=== PATIENT | male | born 1980 | race Caucasian/White ===

== ENCOUNTER → 2022-01-20 09:03 | Outpatient (CLI) | payer OTHER, BC, SELFPAY ==
--- NOTE | ~2022-01-20 | XR_ITS ---
EXAMINATION: XR_CERV2-3V_CR DATE: 01/20/2022 09:34 INDICATION: Right lateral neck pain. Anesthesia of skin. TECHNIQUE: 4 views of cervical spine were obtained. COMPARISON: None. FINDINGS: There is 12 degrees dextroscoliosis of cervical spine. There is hypolordosis of cervical sp ine. Vertebral body heights are normal. There is moderately decreased disc height at C5-C6 and C6-C7. The facet joints are unremarkable. There is mild central canal stenosis at C5-C6 and C6-C7. No preve rtebral soft tissue swelling. IMPRESSION: 1. Moderate cervical spondylosis. 2. Cervical dextroscoliosis. Reviewed, dictated and finalized at location A.
== END ==
PROVIDERS: PCP Family Medicine; Visit Provider Nurse Practitioner Family
DX: M54.2 Cervicalgia (principal); R20.0 Anesthesia of skin; R20.2 Paresthesia of skin; M47.816 Spondylosis without myelopathy or radiculopathy, lumbar region; M47.812 Spondylosis without myelopathy or radiculopathy, cervical region; M41.82 Other forms of scoliosis, cervical region
CPT/HCPCS: 72040

== ENCOUNTER 2022-01-28 11:20 | Outpatient (CLI) | payer OTHER, BC, SELFPAY ==
--- NOTE | ~2022-01-28 | US_ITS ---
EXAMINATION: US renal BI DATE: 01/28/2022 12:12 INDICATION: Right flank and back pain TECHNIQUE: Multiple grayscale and Doppler ultrasound images of the kidneys were obtained. COMPARISON: None. FINDINGS: The right kidney measures 11.8 x 6.2 x 5.1 cm. There is a 1.6 cm cyst of the mid kidney. A 9 mm echogenic focus in the lower pole of the right kidney without posterior acoustic shadowing likel y reflects an angiomyolipoma. The left kidney measures 11.0 x 5.0 x 5.7 cm. The kidneys demonstrate n ormal parenchymal echogenicity. There is no hydronephrosis. The bladder is incompletely distended. Ap parent mild wall thickening of the urinary bladder likely reflects incomplete distention. IMPRESSION: 1. Unremarkable kidneys without hydronephrosis. Reviewed, dictated and finalized at location A.
--- NOTE | ~2022-01-28 | US_ITS ---
EXAMINATION: US scrotum doppler DATE: 01/28/2022 12:12 INDICATION: Left testicular pain TECHNIQUE: Testicular sonogram utilizing grayscale and Doppler COMPARISON: None. FINDINGS: The right testis measures 5.3 x 3.2 x 2.5 cm. The left testis measures 4.6 x 3.5 x 2.2 cm. There is normal vascular flow to both testes. The right epididymis is normal with normal vascular yasmany w. The left epididymis is normal with normal vascular flow. There are multiple anechoic structures in the supratesticular region on the left which may reflect a varicocele. IMPRESSION: 1. Possible left varicocele. Reviewed, dictated and finalized at location A.
== END 2022-01-28 11:21 | disposition home or self-care (01) ==
LOC: ANHIMG 11:26
PROVIDERS: PCP Family Medicine; Visit Provider Nurse Practitioner Family
DX: R10.9 Unspecified abdominal pain (principal); N50.819 Testicular pain, unspecified
CPT/HCPCS: 76775; 76870; 93976

== ENCOUNTER → 2022-11-06 10:32 | Outpatient (CLI) | payer BC, SELFPAY ==
--- NOTE | ~2022-11-06 | XR_ITS ---
XR wrist RT min 3V DATE: 11/06/2022 10:37 INDICATION: Recent fall. Lateral right wrist. TECHNIQUE: 4 views COMPARISON: 11/09/2019 right hand FINDINGS: No fracture or dislocation, periosteal reaction or bone destruction, joint space narrowing, radiopaque intra-articular loose body, chondrocalcinosis or erosive change. IMPRESSION: Negative Reviewed, dictated and finalized at location B. IFIED NURSE OPERATING ROOM IMPRESSION: Negative
== END ==
PROVIDERS: PCP Family Medicine; Visit Provider Nurse Practitioner
DX: M25.531 Pain in right wrist (principal)
CPT/HCPCS: 73110

== ENCOUNTER → 2022-11-13 09:25 | Outpatient (CLI) | payer BC, SELFPAY ==
--- NOTE | ~2022-11-13 | XR_ITS ---
EXAMINATION: XR wrist RT 2V DATE: 11/13/2022 09:35 INDICATION: Persistent right wrist pain post recent injury TECHNIQUE: Posteroanterior and lateral views of the right wrist were obtained. COMPARISON: 11/06/2022 FINDINGS: 4 mm ulnar minus variance. Alignment is otherwise normal. Old healed fracture deformity at the distal diaphysis of the right fifth metacarpal. No acute fracture. Joint space is normal. Sclerotic bone is land at the radial styloid process. Soft tissue swelling subcutaneous edema about the wrist. IMPRESSION: 1. No acute osseous abnormality. Reviewed, dictated and finalized at location B. 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
== END ==
PROVIDERS: PCP Family Medicine; Visit Provider Physician Assistant
DX: M25.531 Pain in right wrist (principal)
CPT/HCPCS: 73100

== ENCOUNTER 2023-09-08 15:11 | Outpatient (CLI) | payer BC, SELFPAY ==
--- NOTE | ~2023-09-08 | MR_ITS ---
EXAMINATION: MR lumbar spine wo con DATE: 09/08/2023 16:05 INDICATION: Low back pain TECHNIQUE: Magnetic resonance imaging (MRI) of the lumbar spine was performed without intravenous con trast. Sequences included sagittal T2-weighted FSE, sagittal T2-weighted FS FSE, sagittal T1-weighted FSE, and axial T2-weighted FSE. COMPARISON: None FINDINGS: 4 mm retrolisthesis L1 on L2, 6 mm retrolisthesis and 4 mm left lateral listhesis of L2 on L3, 5 mm r etrolisthesis L3 on L4, 4 mm retrolisthesis L4 on L5 and 2 mm retrolisthesis L5 on S1. 6 mm mid lumba r dextrocurvature. Likely physiologic monitoring mild anterior wedging at T12-L2. There are multiple Schmorl's nodes along the majority the endplates the lumbar and lower thoracic spine. Scattered small regions of mild fibrofatty and fibrovascular degenerative endplate changes. Otherwise normal marrow signal. Moderate to severe left-sided predominant disc height loss at L2-L3 and L3-L4 and right-sided predominant disc height loss at L4-L5. Moderate disc height loss at T11-T12. Mild to moderate disc h eight loss at L1-L2 and mild disc height loss at L5-S1. The conus medullaris terminates at L1-L2. The re is normal signal in the caudal spinal cord. Paravertebral soft tissues are unremarkable. The follo wing disc levels are specifically discussed: T11-T12: Disc is mildly bulging with superimposed left subarticular zone annular fissure and disc pro trusion. There is moderate bilateral facet osteoarthritis. There is mild to moderate left neural fora juanito stenosis. There is mild central canal stenosis with mild indentation of the left ventral surfac e of the cord. T12-L1: Annular fissure and small right subarticular zone disc protrusion. There is mild right and mo derate left facet joint osteoarthritis. There is minimal right neural foraminal stenosis. There is mi ld central canal stenosis with mild narrowing of the right lateral recess. L1-L2: Disc is bulging with right foraminal zone annular fissure. There is mild bilateral facet joint osteoarthritis. There is mild bilateral neural foraminal stenosis. There is mild central canal steno sis. L2-L3: Disc is bulging with annular fissure. There is mild bilateral facet joint osteoarthritis. Ther e is mild bilateral neural foraminal stenosis. There is mild central canal stenosis with moderate veronika rowing of the left and right lateral recesses. L3-L4: Disc is bulging with annular fissure. There is mild bilateral facet joint osteoarthritis. Ther e is moderate left and mild to moderate right neural foraminal stenosis. There is mild central canal stenosis with moderate narrowing of the left and right lateral recesses. L4-L5: Disc is bulging with annular fissure and small central disc extrusion with disc material exten ding couple millimeter caudal to the level of the superior endplate of L5. There is mild bilateral fa cet joint osteoarthritis. There is mild left and moderate right neural foraminal stenosis. There is m ild central canal stenosis. L5-S1: Annular fissure and small central disc protrusion. There is severe bilateral facet joint osteo arthritis. There is mild to moderate bilateral neural foraminal stenosis. There is no central canal s tenosis. IMPRESSION: 1. Moderate to severe lumbar spondylosis. Reviewed, dictated and finalized at location A. 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
== END 2023-09-08 15:12 | disposition home or self-care (01) ==
PROVIDERS: PCP Family Medicine; Visit Provider Physician Assistant
DX: M43.06 Spondylolysis, lumbar region (principal)
CPT/HCPCS: 72148

== ENCOUNTER 2023-10-15 12:52 | Outpatient (CLI) | payer BC, SELFPAY | END 2023-10-15 12:53 | disposition home or self-care (01) | PROVIDERS: PCP Family Medicine; Visit Provider Family Medicine | DX: H90.3 Sensorineural hearing loss, bilateral (principal) | CPT/HCPCS: 92557; 92567 ==

== ENCOUNTER 2023-11-23 15:58 | Outpatient (CLI) | payer OTHER, SELFPAY ==
[2023-11-23 16:23] LABS: Basophils Absolute Auto 0.1 K/mm3 (0.0-0.1); Basophils Percent Auto 0.9 % (0.2-1.2); Eosinophils Absolute Auto 0.4 K/mm3 (0-0.3); Eosinophils Percent Auto 5.8 % (0-4.4); Hematocrit 42.6 % (42.0-52.0); Hemoglobin 14.2 g/dL (14.0-18.0); Immature Granulocyte Absolute 0.01 K/mm3 (0.00-0.031); Immature Granulocyte Percent A 0.2 % (0-0.5); Lymphocytes Absolute Auto 2.09 K/mm3 (0.9-3.2); Lymphocytes Percent Auto 32.5 % (18.3-44.2); Mean Corpuscular HGB Conc 33.3 g/dl (32-36); Mean Corpuscular Hemoglobin 28.9 pg (26-34); Mean Corpuscular Volume 86.8 fl (80-100); Mean Platelet Volume 10.5 fl (7.4-10.4); Monocytes Absolute Auto 0.5 K/mm3 (0.1-0.6); Monocytes Percent Auto 8.1 % (2.6-8.5); Neutrophils Absolute Auto 3.4 K/mm3 (1.3-6.7); Neutrophils Percent Auto 52.5 % (45.5-73.1); Platelet Count Result 229 k/mm3 (150-375); Red Blood Count 4.91 M/mm3 (4.6-6.20); Red Cell Distribution Width 12.7 % (11.5-14.5); White Blood Count 6.4 K/mm3 (4.5-10.0)
[2023-11-23 16:31] LABS: Partial Thromboplastin Time 25.8 SECONDS (22.3-36.8); Prothrombin Time 13.9 Seconds (11.1-14.7)
[2023-11-23 16:41] LABS: Anion Gap 6 mmol/L (8-16); Blood Urea Nitrogen 16 mg/dL (9-20); Calcium 8.9 mg/dL (8.4-10.2); Carbon Dioxide 24 mmol/L (22-30); Chloride 108 mmol/L (98-107); Estimated Glomerular Filt Rate > 60; Glucose 95 mg/dL (65-110); Potassium 3.8 mmol/L (3.4-5.0); Sodium 138 mmol/L (137-145)
== END 2023-11-23 15:59 | disposition home or self-care (01) ==
LOC: ANHLAB 16:00
PROVIDERS: PCP Family Medicine; Visit Provider Urology
DX: Z01.818 Encounter for other preprocedural examination (principal); N40.0 Benign prostatic hyperplasia without lower urinary tract symptoms
CPT/HCPCS: 36415; 80048; 85025; 85610; 85730; 87086

== ENCOUNTER 2023-11-30 00:39 | Day surgery (SDC) | payer OTHER, SELFPAY ==
[2023-11-22 15:07] VITALS: BMI 32.1
--- NOTE | 2023-11-22 15:13 | PC.NURSE ---
Report to the Outpatient Waiting Room, entrance under the green pavilion located off [facility], at time 6:15 on date 11/30/23. Planned Procedure Time: 8:15. Time changes happen often and if your time is changed the preop area will call you the afternoon before. - You and your visitor will be asked to self-screen and do not enter if you have any COVID symptoms. - A mask is optional within the hospital at this time. Patients may have clear liquids (water, carbonated beverages, clear teas, apple juice) until 3 hours prior to surgery (5:15) with a maximum of 20 ounces. - No food from midnight until time of surgery Take the following medications with a SIP of water the morning of surgery: VALACYCLOVIR, TRAMADOL IF NEEDED DO NOT STOP ANY OF YOUR OTHER PRESCRIPTION MEDICATIONS PRIOR TO SURGERY ?EXCEPT THE FOLLOWING Medications to discontinue per physician: ASPIRIN, DICLOFENAC Date to take last dose: CALL DR. GOMEZ OFFICE FOR INSTRUCTIONS Please no make-up, nail sri lankan, hairspray, perfume, deodorant, or body powder the day of surgery. No jewelry (including any body piercings) or valuables the day of surgery, leave them at home. Please take a shower or bath the night before, or the morning of, surgery with an antibacterial soap. Wear comfortable, loose fitting clothing. - Jewelry must be removed prior to entering the operating room. Rings and piercings that are not removed may be cut off. - The hospital will not accept responsibility for valuables. - Please leave all valuables, including medications, at home the day of surgery. If you are going home after surgery, a licensed haul truck driver must drive you home. - NO public transportation without another adult if you receive anesthesia. - We recommend that an adult stay with you for 24 hours following discharge. - We also recommend that you do not drive, make important decision, drink alcoholic beverages, or take any drugs that were not prescribed by your health care provider for at least 24 hours after your discharge time. Follow any additional instructions given to you from your surgeon. If you or anyone in your household have experienced Covid symptoms in the past week, please notify your surgeon or the nurse liaison at the phone number below for possible testing. Telephone instructions given to PT - IMTIAZ HENDRIX and asked if any additional questions and then verbalized understanding. Patient advised to call surgeon office or pre surgery nurse liaison [phone] if any additional questions.
--- NOTE | 2023-11-29 13:49 | WPDANESEPPF ---
Anes - Initial Pre Proc Eval Procedure: Operation Date: 11/30/23 08:15 Proposed Procedures p Cystoscopy, Bladder Biopsy with Fulguration - Juancarlos Garcia MD s Possible Trans Urethral Resection Bladder Tumor - Juancarlos Garcia MD Date/Time: 11/29/23 13:49 Surgeon: Juancarlos Garcia MD Pre Op Diagnosis: BPH,urinary tract sym,overactive bladder (cont) Patient Data Age: 43 Gender: M Height: 1.8 m Weight: 104.35 kg Allergies Allergy/AdvReac Type Severity Reaction Status Date / Time clarithromycin Allergy Unknown Jittery Verified 11/30/23 06:49 guaifenesin Allergy Unknown Jittery Verified 11/30/23 06:49 phenylephrine Allergy Unknown Jittery Verified 11/30/23 06:49 Home Medications Medication Instructions Recorded Confirmed Type finasteride 5 mg tablet 5 mg PO DAILY #90 tabs 02/10/23 11/22/23 Rx tramadol 50 mg tablet 50 mg PO Q6H PRN pain #28 tabs 08/09/23 11/22/23 Rx diclofenac sodium 75 mg 75 mg PO BID PRN pain #60 tabs 08/23/23 11/22/23 Rx tablet,delayed release cyclobenzaprine 10 mg tablet 10 mg PO TID PRN Muscle Spasm 10/08/23 11/22/23 History atorvastatin 80 mg tablet 80 mg PO DAILY #90 tabs 10/22/23 11/22/23 Rx valacyclovir 500 mg tablet See Rx Instructions .Route 11/16/23 11/22/23 Rx .COMPLEX #90 tabs aspirin 325 mg tablet 325 mg PO DAILY #90 tabs 11/22/23 11/22/23 Rx Patient hx anesthesia problems: none Family hx anesthesia problems: none Results Review: All pre-operative results and documents have been reviewed as part of the pre-operative evaluation. [facility] Past Medical History Medical History (Updated 11/29/23 @ 13:50 by Beny Odom DO) BMI 32.0-32.9,adult CVA (cerebral vascular accident) Mixed hyperlipidemia GABBI (obstructive sleep apnea) does not use CPAP Surgical History Surgical History H/O knee surgery LEFT KNEE MENISCUS S/P patent foramen ovale closure 05/29/19 Family History Family History Father Hypertension Lung cancer Grandparent Family history of malignant neoplasm Mother Hypertension Sibling Acute myocardial infarction Hypertension Other Diabetes mellitus Family history of coronary artery disease Social History Social History (Updated 10/08/23 @ 15:09 by Mel Mota CMA) Smoking status: Never smoker Smokeless tobacco user: chewing tobacco Second hand tobacco smoke exposure: Yes Alcohol intake: never Substance use: never Substance use type: does not use Do You Feel Safe in your Home?: Yes Lack of Transportation: No Lack of Food: Never True Current Housing: I Have Housing Concerned About Future Housing: No Difficulty Paying Gas/Electric Bills: No Difficulty Paying for Meds: No Currently Unemployed: No Education: Trade/Vocational Certificate Difficulty w/ Childcare or Family Care: No Living arrangements: with family Occupation/Education: occupation Additional occupation/education comments: [employer] Gender identity (if verbalized by the patient): Male Spiritual care concerns: No Anes - Eval Final PreProcedure Day of Procedure 11/29/23 13:49 Patient weight: obese Heart: regular rate and rhythm Lungs: clear to auscultation Airway: Mallampati scale class III Neurological: alert and oriented Last oral intake: >/= 8 hours ASA classification: III Emergent: no Anesthetic plan: proceed Anesthesia type and monitoring: general LMA and standard monitoring Results Review: All pre-operative results and documents have been reviewed as part of the pre-operative evaluation. Informed Consent: The patient's anesthetic plan and its attendant risks and benefits were discussed with the patient/family/POA. Questions were solicited and answers provided to the satisfaction of the patient/family/POA.
[2023-11-30] VITALS (7 sets, daily range): BP systolic 111–143; BP diastolic 75–104; PULSE 53–70; RESP 14–16; TEMP 36.5–37.3; O2SAT 98–100
--- NOTE | 2023-11-30 05:49 | ECG_ITS ---
Measurements Intervals [place] Rate: 58 P: 25 MI: 182 QRS: 30 QRSD: 108 T: 1 QT: 396 QTc: 392 Interpretive Statements SINUS BRADYCARDIA WITH SINUS ARRHYTHMIA NONSPECIFIC ST ELEVATION [0.05+ mV ST ELEVATION] NO PREVIOUS ECG AVAILABLE FOR COMPARISON Electronically Signed On 11-30-2023 15:13:25 FOOD AND BEVERAGE ASSOCIATE by Christiano Sandoval M.D.
--- NOTE | 2023-11-30 07:23 | WPDHPUPDATE1 ---
History and Physical Update Update Date/Time: 11/30/23 07:23 History and Physical has been reviewed, including an updated exam of the patient. There are NO changes in the patient's condition. Risks, benefits, and alternatives have been discussed and questions answered. Patient agrees to proceed with procedure. Proceed with cysto , bladder biopsy with fulguration, possible turbt
[2023-11-30] MEDS: LACTATED RINGERS 1,000 ML 30 ML IV CONT (07:31)
[2023-11-30] MEDS: ceFAZolin 2 GM/D5W 50 ML 2 GM/50 ML BAG IVPB (08:28)
[2023-11-30] MEDS: LIDOCAINE HCL 2% GEL UROJET 10 ML PKG MUCOUS MEM (08:40)
--- NOTE | 2023-11-30 08:58 | W.PM.PROC2 ---
Procedure Note - Detailed Date of Procedure 11/30/23 Pre-op Diagnosis BPH,urinary tract sym,overactive bladder (cont) bladder lesion Post-op Diagnosis Same Procedure Performed Cystoscopy with bladder biopsy and fulguration Surgeon Juancarlos Garcia MD Anesthesia General Description of Procedure Patient is taken to the operative suite correctly identified. Once anesthesia was obtained was placed in dorsal lithotomy position and prepped and draped usual sterile fashion. Review for scope was inserted the bladder. He has an area of increased vascularity and slightly raised mucosa along the posterior wall. Using a cold cup biopsy this was biopsied and fulgurated. There was good hemostasis at termination of procedure. 2% viscous lidocaine was inserted into the urethra patient is taken recovery stable condition. He will call for path results in 1 week. This completes dictation. Please send a copy this op note to my office. Estimated Blood Loss 0 Drains No Packing No Pathology Yes Complications No immediate complications Condition Stable Disposition PACU
--- NOTE | 2023-11-30 11:21 | SUR.PHASEII ---
patient was going to the bathroom and had clots and blood. Spoke with MD. Garcia and he stated it is normal and have the patient drink more water.
== END 2023-11-30 11:30 | disposition home or self-care (01) ==
PROVIDERS: PCP Family Medicine; Visit Provider Urology
PROC: 0TBB8ZX Excision of Bladder, Via Natural or Artificial Opening Endoscopic, Diagnostic (ICD-10-PCS; CPT 52204; principal; 2023-11-30 08:15)
DX: N30.20 Other chronic cystitis without hematuria (principal); N32.81 Overactive bladder; N40.0 Benign prostatic hyperplasia without lower urinary tract symptoms; E78.2 Mixed hyperlipidemia; G47.33 Obstructive sleep apnea (adult) (pediatric); Z86.73 Personal history of transient ischemic attack (TIA), and cerebral infarction without residual deficits; Z79.82 Long term (current) use of aspirin; F17.220 Nicotine dependence, chewing tobacco, uncomplicated; E66.9 Obesity, unspecified; Z68.32 Body mass index [BMI] 32.0-32.9, adult
CPT/HCPCS: 52204; 36415; 80048; 85025; 85610; 85730; 87086; 88305; 93005; J0690; J2250; J2405; J2704; J3010; J7120

== ENCOUNTER 2024-02-11 14:03 | Outpatient (CLI) | payer OTHER, SELFPAY | END 2024-02-11 14:04 | disposition home or self-care (01) | LOC: ANHAUDASC 14:53 | PROVIDERS: PCP Family Medicine; Visit Provider Family Medicine | DX: H91.90 Unspecified hearing loss, unspecified ear (principal) | CPT/HCPCS: 99199 ==

== ENCOUNTER 2024-03-08 15:00 | Outpatient (RCR) | payer OTHER, SELFPAY | END 2024-05-23 23:59 | disposition home or self-care (01) | LOC: ANHAUDASC 15:00 | PROVIDERS: PCP Family Medicine; Visit Provider Family Medicine | DX: Z46.1 Encounter for fitting and adjustment of hearing aid (principal) | CPT/HCPCS: 99199; V5160; V5257; V5261 ==

== ENCOUNTER 2024-06-08 12:53 | Outpatient (CLI) | payer OTHER, SELFPAY ==
--- NOTE | ~2024-06-08 | MR_ITS ---
EXAMINATION: MR lumbar spine wo con DATE: 06/08/2024 13:44 INDICATION: Vertebral genic low back pain TECHNIQUE: Magnetic resonance imaging (MRI) of the lumbar spine was performed without intravenous con trast. Sequences included sagittal T2-weighted FSE, sagittal T2-weighted FS FSE, sagittal T1-weighted FSE, and axial T2-weighted FSE. COMPARISON: 09/08/2023 FINDINGS: 10 degree lumbar dextrocurvature measured between L1 and L4. 3 mm retrolisthesis L1 on L2, 5 mm retro listhesis and a 4 mm left lateral listhesis L2 on L3, 4 mm retrolisthesis L3 on L4, 3 mm retrolisthes is of L4 on L5 and 2 mm retrolisthesis L5 on S1. Unchanged likely physiologic mild anterior wedging a t T12-L2. There are multiple Schmorl's nodes involving the majority of the endplates from the inferio r endplate of T11 to the superior endplate of L5. Severe disc height loss with fibrofatty and fibrova scular degenerative endplate changes at L2-L3, L3-L4 and at the right side of L4-L5. Moderate disc he ight loss at T11-T12 and L1-L2. Mild to moderate disc height loss at L1-L2 and mild disc height loss at T12-L1 and L5-S1. The conus medullaris terminates at L1-L2. There is normal signal in the caudal spinal cord. Paravertebral soft tissues are unremarkable. The following disc levels are specifically discussed: T12-L1: Annular fissure and small central disc protrusion. There is mild to moderate right and modera te left facet joint osteoarthritis. There is no neural foraminal stenosis. There is mild central yovana l stenosis. L1-L2: Disc is bulging with right foraminal zone annular fissure. There is mild right and mild to mod erate left facet joint osteoarthritis. There is mild bilateral, right greater than left neural forami nal stenosis. There is mild central canal stenosis. L2-L3: Disc is bulging with annular fissure. There is mild bilateral facet joint osteoarthritis. Ther e is also moderate bilateral neural foraminal stenosis. There is mild central canal stenosis with mod erate narrowing of the left and right lateral recesses. L3-L4: Disc is bulging with annular fissure disc extrusion with disc material extending to mammograph ically level of the superior endplate of L4 extending from foraminal zone and foraminal zone. There i s mild bilateral facet joint osteoarthritis. There is mild to moderate right and moderate to severe l eft neural foraminal stenosis. There is mild central canal stenosis with moderate narrowing of the le ft and right lateral recesses. L4-L5: Disc is bulging with annular fissure and small central disc extrusion with disc material exten ding 2 mm cephalad to the level of the superior endplate of L5. There is moderate bilateral facet james nt osteoarthritis. There is moderate right and mild to moderate left neural foraminal stenosis. There is mild central canal stenosis. L5-S1: Annular fissure and small central disc protrusion. There is severe bilateral facet joint osteo arthritis. There is mild to moderate bilateral neural foraminal stenosis. There is no central canal s tenosis. IMPRESSION: 1. Minimal interval progression of severe lumbar spondylosis. Reviewed, dictated and finalized at location A.
== END 2024-06-08 12:54 | disposition home or self-care (01) ==
PROVIDERS: PCP Family Medicine; Visit Provider Physical Medicine & Rehabilitation Pain Medicine
DX: M54.51 Vertebrogenic low back pain (principal)
CPT/HCPCS: 72148

== ENCOUNTER 2024-09-22 09:46 | Outpatient (CLI) | payer OTHER, SELFPAY ==
--- NOTE | ~2024-09-22 | XR_ITS ---
XR finger 1st LT min 2V Ordering provider: ZOEY Dillard History: . injury to 1st digit x 3weeks ago, swelling . Comparison: None. FINDINGS: BONES: Undisplaced fracture of the proximal metaphysis of the distal phalanx of the left thumb. JOINT SPACES: Normal. SOFT TISSUES: Normal. IMPRESSION: Undisplaced fracture in the proximal metaphysis of the distal phalanx of the left thumb. Reviewed, dictated and finalized at location A. CAL INFORMATION SPECIALIST IMPRESSION: Undisplaced fracture in the proximal metaphysis of the distal phalanx of the le ft thumb.
== END 2024-09-22 09:47 | disposition home or self-care (01) ==
LOC: GOSHIMG 09:48
PROVIDERS: PCP Family Medicine; Visit Provider Nurse Practitioner Family
DX: S62.525A Nondisplaced fracture of distal phalanx of left thumb, initial encounter for closed fracture (principal); X58.XXXA Exposure to other specified factors, initial encounter
CPT/HCPCS: 73140

== ENCOUNTER 2025-03-21 14:30 | Outpatient (CLI) | payer OTHER, SELFPAY ==
--- OUTSIDE RECORDS SUMMARY | 2025-03-21 14:41 | XMS_ITS | Referral Summary ---
Author Organization [facility] Address [address] [place] [address] Care Team Providers Care Motor Teacher Name Role Phone Nereida Abel MD Primary Care Provider + Allergies No known active allergies Medications aspirin 325 mg tablet 02/28/2022 Active atorvastatin (LIPITOR) 80 mg tablet Take 1 tablet (80 mg total) by mouth daily 01/09/2022 Active loratadine 10 mg capsule Take by mouth Active valACYclovir (VALTREX) 500 mg tablet 03/15/2022 Active traMADoL (ULTRAM) 50 mg tablet Take 1 tablet (50 mg total) by mouth every 6 (six) hours Active Active Problems Problem Noted Date Diagnosed Date Personal history of transien t ischemic attack (TIA), and cerebral infarction without residual deficits 10/17/2024 S/P percutaneous patent foramen ovale closure Hyperlipidemia 03/27/2022 Other sequelae of other cerebrovascular disease 03/27/2022 Social History Tobacco Use Types Packs/Day Years Used Date Smoking Tobacco: Never Smokeless Tobacco: Former Chew Quit: 11/20/2010 Tobacco Cessation:Counseling Given: Not Answered Sex and Gender Information Value Date Recorded Sex Assigned at Not on file Legal Sex Male 9:34 AM [employer] INS[employer] ACTU[employer] Gender Identity Not on file Sexual Orientation Not on file Last Filed Vital Signs Vital Sign Reading Time Taken Comments Blood Pressure 134/88 10/17/2024 3:19 PM [employer] Pulse 86 10/17/2024 3:19 PM [employer] Temperature - - Respiratory Rate - - Oxygen Saturation 97% 10/17/2024 3:19 PM [employer] Inhaled Oxygen Concentration - - Weight 108.9 kg (240 lb) 10/17/2024 3:19 PM [employer] Height 180.3 cm (5' 11) 10/17/2024 3:19 PM [employer] Body Mass Index 33.47 10/17/2024 3:19 PM [employer] Plan of Treatment Not on file Insurance [facility] Care Teams Motor Teacher Relationship Specialty Start Date End Date Nereida Abel MD PCP - General Family Medicine 10/07/23
--- OUTSIDE RECORDS SUMMARY | 2025-03-21 14:41 | XMS_ITS | Clinical Summary ---
Author Organization [facility] Address [address] [place] [address] Care Team Providers Care Durable Medical Equipment Repairer Name Role Phone Bruno Mg MD Primary Care Provider [phone] Source Comments [facility],non-owned Affiliates and Associated Physician Practices is amultiple site organization consisting of ambulatory clinics and hospital sitesin [place], [place], [place] and [place]. This disclosure is being madepursuant to the Care Everywhere program and may not contain all information available regarding this patient. Last updated 18.[facility] Allergies No known active allergies Medications * Be aware that medications may not be up to date on this document. Alwaysverify current medications with the patient. fluticasone propionate (FLONASE) 50 MCG/ACT nasal spray 0 01/25/2017 Active valACYclovir (VALTREX) 500 MG tablet 10/17/2016 Active Loratadine (CLARITIN) 10 MG Active Multiple Vitamins-Minera ls (MULTIVITAMIN ADULT PO) Take by mouth once daily Active Magnesium 125 MG CAPS Take 250 mg by mouth once daily Active nystatin (MYCOSTATIN) 870799 UNIT/GM cream APPLY TO AFFECTED AREA TWICE A DAY 0 05/31/2019 Active tamsulosin (FLOMAX) 0.4 MG capsuleIndicati ons:Lower urinary tract symptoms (LUTS) Take 1 capsule by mouth once daily At the same time every day after a meal. 90 capsule 3 06/28/2019 Active gabapentin (NEURONTIN) 300 MG capsuleIndicati ons:Tension headache TAKE 1 CAPSULE TWICE A DAY 180 capsule 3 04/17/2020 Active atorvastatin (LIPITOR) 80 MG tablet TAKE 1 TABLET AT BEDTIME 90 tablet 3 04/15/2021 Active aspirin (Aspirin) 325 MG tablet TAKE 1 TABLET DAILY 90 tablet 3 05/29/2022 Active Active Problems Problem Noted Date Diagnosed Date Chest pain 01/17/2020 Assessment & Plan (01/17/2020 2:45 PM CDT): Episodes of upper left chest tightness seem to be stress related. Given his age and that they are only lasting 15-20 seconds, we have opted to not pursue further workup. Advised that if episodes get more frequent or longer in duration, he should immediately inform us and we will have him undergo stress testing at that point. Remains on aspirin and statin - continue at this time. S/P percutaneous patent foramen ovale closure Assessment & Plan (01/17/2020 2:45 PM CDT): Continue daily aspirin. Due for 6 month echo, but because of Coronavirus concerns - we have deferred this for the time being. Assessment & Plan (07/21/2019 12:45 PM CDT): Doing well status post procedure. No concerning symptoms or events. Echocardiographic findings today suggest no residual shunt between right and left atria. At this time, recommend continuation of aspirin and clopidogrel for the next 5 months. Also recommend antibody prophylaxis prior to any invasive procedure during this time frame. We will reevaluate in 5 months, which would be 6 months post-implant. Further recommendations to follow after that visit. 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 Spent time today discussing with him that when the initial opinion was made, therefore was a significant lack of data that supported PFO closure has a superior way of reducing ones risk for subsequent stroke over anticoagulant/antiplatelet therapy. Since the time that we made the initial assessment, newer studies came out which show more conclusively that the PFO closure would have significant benefits over medical therapy alone. We again discussed the percutaneous closure procedure with him in detail today, including risks. We advised that he undergo percutaneous closure of his pain foram[place] valley for stroke prophylaxis. He will work with us to schedule this procedure in the near future. Family History Medical History Relation Name Comments None Known Father Status: Alive Heart Disease Mother Status: Alive Relation Name Status Comments Father Mother Social History Tobacco Use Types Packs/Day Years Used Date Smoking Tobacco: Never Smokeless Tobacco: Never Alcohol Use Standard Drinks/Week Comments Yes 1 (1 standard drink = 0.6 oz pur e alcohol) Sex and Gender Information Value Date Recorded Sex Assigned at Not on file Legal Sex Male 5:16 PM [employer] T[employer] APPRAISER Gender Identity Not on file Sexual Orientation Not on file Last Filed Vital Signs Vital Sign Reading Time Taken Comments Blood Pressure 130/90 07/22/2020 4:06 PM CDT Pulse 77 07/22/2020 4:06 PM CDT Temperature 36.6 C (97.8 F) 06/16/2019 8:53 AM CDT Respiratory Rate 20 06/16/2019 8:53 AM CDT Oxygen Saturation 99% 07/22/2020 4:06 PM CDT Inhaled Oxygen Concentration 21% 06/12/2019 1 0:40 PM CDT Weight 102.1 kg (225 lb) 07/22/2020 4:06 PM CDT Height 185.4 cm (6' 1) 07/22/2020 4:06 PM CDT Body Mass Index 29.69 07/22/2020 4:06 PM CDT Plan of Treatment Health Maintenance Due Date Last Done Comments HIV SCREENING 1997 HEPATITIS C SCREENING 06/15/2000 DTAP/TDAP/TD VACCINES (1 - Tdap) 2001 HEPATITIS B VACCINE (1 of 3 - 19+ 3-dose series) 2001 COVID-19 VACCINE (1 - 2023-2 5 season) 2024 DEPRESSION SCREENING 10/18/2024 INFLUENZA VACCINE (Season Ended) 2025 ZOSTER VACCINE (1 of 2) 2032 HIB VACCINE Aged Out No longer eligi ble based on patient's age to complete this topic HPV VACCINE Aged Out No longer eligi ble based on patient's age to complete this topic MENINGOCOCCAL (Group B) VACC INE SHARED DECISION-MAKING Aged Out No longer eligibl e based on patient's age to complete this topic MENINGOCOCCAL GROUPS A/C/Y/W VACCINE Aged Out No longer eligible b ased on patient's age to complete this topic PNEUMOCOCCAL VACCINE Aged Out No long er eligible based on patient's age to complete this topic Medical Devices Implanted Type Area Tie Man Device Identifier Shelf Expiration Date Model / Serial / Lot Occl Sept Cribifrm 18mm Implanted:Qty: 1 on 06/12/2019 by Javier Chan MD at [facility] [employer] 08/17/2023 [id number] Insurance AETNA ANTHEM AETNA AETNA AETNA AETNA AETNA AET AETNA Advance Directives * Full Code (Latest Code Status on File) Date Activated Date Inactivated Comments 06/12/2019 2:12 PM 06/14/2019 1:51 PM Care Teams Durable Medical Equipment Repairer Relationship Specialty Start Date End Date Bruno Mg MD [address] [place] [address] PCP - General 11/03/16
--- OUTSIDE RECORDS SUMMARY | 2025-03-21 14:41 | XMS_ITS | Clinical Summary ---
Author Organization [facility] Address [address] [place] [address] Care Team Providers Care Assistant Education Director Name Role Phone Nereida Abel MD Primary [...] Other sequelae of other cerebrovascular disease 03/27/2022 Surgical History Surgery Date Site/Laterality Comments PATENT FORAMEN OVALE CLOSURE Medical History Medical History Date Comments Stroke (HCC) Sleep apnea, obstructive Hyperlipidemia PFO (patent foramen ovale) Family History Medical History Relation Name Comments Hypertension Father Relation Name Status Comments Father Alive Mother Alive Social History Tobacco Use Types Packs/Day Years Used Date Smoking Tobacco: Never Smokeless Tobacco: Former Chew Quit: 11/20/2010 Tobacco Cessation:Counseling Given: Not Answered Sex and Gender Information Value Date Recorded Sex Assigned at Not on file Legal Sex Male 9:34 AM PROBE OPERATOR Gender Identity Not on file Sexual Orientation Not on file Obstetrics History Last Filed Vital Signs Vital Sign Reading Time Taken Comments Blood Pressure 134/88 10/17/2024 3:19 PM PROBE OPERATOR Pulse 86 10/17/2024 3:19 PM PROBE OPERATOR Temperature - - Respiratory Rate - - Oxygen Saturation 97% 10/17/2024 3:19 PM PROBE OPERATOR Inhaled Oxygen Concentration - - Weight 108.9 kg (240 lb) 10/17/2024 3:19 PM PROBE OPERATOR Height 180.3 cm (5' 11) 10/17/2024 3:19 PM PROBE OPERATOR Body Mass Index 33.47 10/17/2024 3:19 PM PROBE OPERATOR Plan of Treatment Health Maintenance Due Date Last Done Comments Depression Screening 1982 Hepatitis C Screening 1982 Varicella Vaccines (1 of 2 - 13+ 2-dose series) 1995 Hepatitis B Screening 2000 Regular Well Visit/Exam 18-64 2000 Influenza Vaccine (Season Ended) 2025 DTaP/Tdap/Td Vaccine (2 - Td or Tdap) 02/04/2033 02/04/2023 HPV Vaccines Aged Out No longer eligi ble based on patient's age to complete this topic Pneumococcal vaccine <65 Aged Out No longer eligible based on patient's age to complete this topic Insurance [facility] ACCESS AETNA [facility] HMO Care Teams Assistant Education Director Relationship Specialty Start Date End Date Nereida Abel MD PCP - General Family Medicine 10/07/23
[2025-03-21 19:24] LABS: Basophils Absolute Auto 0.1 K/mm3 (0.0-0.1); Basophils Percent Auto 0.9 % (0.2-1.2); Eosinophils Absolute Auto 0.3 K/mm3 (0-0.3); Eosinophils Percent Auto 4.5 % (0-4.4); Hematocrit 45.9 % (42.0-52.0); Immature Granulocyte Absolute 0.02 K/mm3 (0.00-0.031); Immature Granulocyte Percent A 0.3 % (0-0.5); Lymphocytes Absolute Auto 2.13 K/mm3 (0.9-3.2); Lymphocytes Percent Auto 30.3 % (18.3-44.2); Mean Corpuscular HGB Conc 32.7 g/dl (32-36); Mean Corpuscular Hemoglobin 28.6 pg (26-34); Mean Corpuscular Volume 87.6 fl (80-100); Mean Platelet Volume 11.1 fl (7.4-10.4); Monocytes Absolute Auto 0.6 K/mm3 (0.1-0.6); Monocytes Percent Auto 8.7 % (2.6-8.5); Neutrophils Absolute Auto 3.9 K/mm3 (1.3-6.7); Neutrophils Percent Auto 55.3 % (45.5-73.1); Platelet Count Result 258 k/mm3 (150-375); Red Blood Count 5.24 M/mm3 (4.6-6.20); Red Cell Distribution Width 12.4 % (11.5-14.5)
[2025-03-21 21:22] LABS: Alanine Aminotransferase 41 U/L (6-50); Albumin Level 4.4 g/dL (3.5-5.1); Alkaline Phosphatase 78 U/L (38-126); Anion Gap 8 mmol/L (4-12); Aspartate Amino Transferase 43 U/L (17-59); Bilirubin,Total 0.3 mg/dL (0.2-1.3); Blood Urea Nitrogen 23 mg/dL (9-20); Calcium 9.6 mg/dL (8.4-10.2); Carbon Dioxide 30 mmol/L (22-30); Chloride 103 mmol/L (98-107); Estimated Glomerular Filt Rate > 60; Glucose 92 mg/dL (65-110); Potassium 4.3 mmol/L (3.4-5.0); Sodium 141 mmol/L (137-145); Total Protein 7.1 g/dL (6.3-8.2)
== END 2025-03-21 14:31 | disposition home or self-care (01) ==
LOC: ANHGOSHLAB 14:30
PROVIDERS: PCP Family Medicine; Visit Provider Nurse Practitioner Family
DX: I63.81 Other cerebral infarction due to occlusion or stenosis of small artery (principal); R53.83 Other fatigue; M48.00 Spinal stenosis, site unspecified; E78.2 Mixed hyperlipidemia
CPT/HCPCS: 36415; 80053; 84443; 85025

== ENCOUNTER 2025-03-21 14:39 | Outpatient (CLI) | payer OTHER, SELFPAY ==
--- NOTE | ~2025-03-21 | XR_ITS ---
XR pelvis 1-2V 03/21/2025 14:50 Indication: Sacroiliitis Procedure: AP pelvis Comparison: No prior studies for comparison. Findings: Pelvic rings intact. Sacral foramen are symmetric. No fracture, subluxation or dislocation. No soft tissue abnormality. No foreign bodies. Impression: 1: No acute bone or joint abnormality. Reviewed, dictated and finalized at location A. Impression: 1: No acute bone or joint abnormality.
== END 2025-03-21 14:40 | disposition home or self-care (01) ==
LOC: GOSHIMG 14:40
PROVIDERS: PCP Physical Medicine & Rehabilitation Pain Medicine; Visit Provider Physical Medicine & Rehabilitation Pain Medicine
DX: M46.1 Sacroiliitis, not elsewhere classified (principal)
CPT/HCPCS: 72170

== ENCOUNTER 2025-05-14 09:45 | Outpatient (CLI) | payer OTHER, SELFPAY ==
--- NOTE | ~2025-05-14 | XR_ITS ---
CHEST RADIOGRAPH, PA AND LATERAL CLINICAL HISTORY: Z77.090 - Contact with and (suspected) exposure to asbestos . COMPARISON: None available TECHNIQUE: PA and lateral views of the chest. FINDINGS The cardiomediastinal silhouette is unremarkable. The lungs are clear. IMPRESSION: No focal infiltrate or effusion. Reviewed, dictated and finalized at location A.
== END 2025-05-14 09:46 | disposition home or self-care (01) ==
LOC: GOSHIMG 09:46
PROVIDERS: PCP Family Medicine; Visit Provider Nurse Practitioner Family
DX: Z77.090 Contact with and (suspected) exposure to asbestos (principal)
CPT/HCPCS: 71046

== ENCOUNTER 2025-07-25 11:35 | Outpatient (CLI) | payer OTHER, SELFPAY ==
--- NOTE | ~2025-07-25 | XR_ITS ---
EXAMINATION: XR chest 2V, 07/25/2025 11:42 CDT HISTORY: Cough, unspecified, cough x 9 weeks COMPARISON: No comparisons available. Technique: 2 views obtained. Findings: The lungs are clear, no effusion. No pneumothorax. Heart is normal size. Mediastinal and hilar contours are within normal limits. Bony thorax no acute abnormality. Impression: No acute cardiopulmonary abnormality. Reviewed, dictated and finalized at location P. Impression: No acute cardiopulmonary abnormality.
== END 2025-07-25 11:36 | disposition home or self-care (01) ==
PROVIDERS: PCP Nurse Practitioner Family; Referring Provider Otolaryngology; Visit Provider Family Medicine
DX: R05.9 Cough, unspecified (principal)
CPT/HCPCS: 71046

== ENCOUNTER 2025-07-26 15:55 | Outpatient (CLI) | payer OTHER, SELFPAY ==
--- NOTE | ~2025-07-26 | CT_ITS ---
EXAMINATION: CT sinus wo con DATE: 07/26/2025 16:08 INDICATION: Chronic sinusitis TECHNIQUE: Computed tomography (CT) of the paranasal sinuses was performed without intravenous contrast. Coronal reconstructions were obtained. Iterative reconstruction technique was employed. The dose-length product was 287.97 mGy-cm. COMPARISON: Brain MR dated 01/29 2017 FINDINGS: Prominent mucosal thickening throughout the bilateral maxillary sinuses along with dependently layering mucus partially filling the maxillary sinuses. Additional mucosal thickening with in the bilateral ethmoid sinuses with complete opacification of a few of the ethmoid air cells. There is occlusion of the bilateral frontoethmoidal recesses and bilateral ostiomeatal units. The bilateral frontal sinuses and left sphenoid sinus remain clear. Minimal mucosal thickening the right sphenoid sinus. There is leftward bowing of the nasal septum which parallels the contours of the turbinates along with a left-sided sacral spine. Mastoid air cells and middle ear cavities are clear. Orbits are normal. IMPRESSION: 1. Prominent bilateral ethmoid and maxillary sinus disease including occlusion of the bilateral ostiomeatal units and frontal ethmoidal recesses and dependently layering fluid in the maxillary sinuses consistent with acute sinusitis.. Reviewed, dictated and finalized at location A. IMPRESSION: 1. Prominent bilateral ethmoid and maxillary sinus disease including occlusion of the bilateral ostiomeatal units and frontal ethmoidal recesses and dependent ly layering fluid in the maxillary sinuses consistent with acute sinusitis..
== END 2025-07-26 15:56 | disposition home or self-care (01) ==
LOC: MICIMG 15:57
PROVIDERS: PCP Nurse Practitioner Family; Visit Provider Otolaryngology
DX: J32.2 Chronic ethmoidal sinusitis (principal); J32.0 Chronic maxillary sinusitis; J34.89 Other specified disorders of nose and nasal sinuses
CPT/HCPCS: 70486

== ENCOUNTER 2025-08-23 08:09 | Outpatient (CLI) | payer OTHER, SELFPAY ==
--- OUTSIDE RECORDS SUMMARY | 2025-01-12 06:42 | XMS_ITS ---
Author Organization [facility] Address [address] [place] [address] Care Team Providers Care Container Maker Name Role Phone Nereida Abel MD Primary Care Provider Unav Sharmin Hamilton Unavailable [phone] Allergies Allergen (clinical drug ingredient) Drug/Non Drug [...] Active Encounters Encounter Location Date Provider Diagnosis [facility] [address] Jamila Rincon [address] [place], [place] [id number] 01/12/2025 Sharmin Landon Plan Of Treatment No Information Progress Notes * Javier HENDRIXDOB:1979 (45 yo M)Acc No.[id number]:01/12/2025 Patient: Javier DELCID :1980 A ge:44 Y S ex:Male Address:[place] [address] Subjective: * Chief Complaints: * P re-Procedure [...]
--- OUTSIDE RECORDS SUMMARY | 2025-01-31 03:45 | XMS_ITS ---
Author Organization [facility] Address [address] [place] [address] Care Team Providers Care Slat Grader Name Role Phone Page BURT, Nereida Primary Care Provider Unav ailable Sharmin Landon Unavailable [phone] REASON FOR VISIT Right L3,L4,L5 RFA Encounters Encounter Location Date Provider Diagnosis [facility] [address] [place] [address] 01/31/2025 Sharmin Landon Lumbar Spondylosis without Myelopathy M47.816 Assessments Encounter Date Diagnosis (ICD Code) Assessment Notes Treatment Notes Treatment Clinical Notes Section Notes 01/31/2025 Lumbar Spondylosis without Myelopathy (ICD-10 - M47.816) Plan Of Treatment No Information Progress Notes * Javier HENDRIXDOB:1979 (45 yo M)Acc No.[id number]:01/31/2025 Patient: Javier DELCID Provider: Sergey Landon MD :1980 A ge:44 Y S ex:Male Date:01/31/2025 Address:[address] Pcp:Nereida Abel MD * * Electronic signature of Sharmin Landon MD on 08/23/2025 at 05:03 PM ALTERATIONS EXPERT Sign off status: Pending * Provider: Sergey Landon MD Date: 0 01/31/2025 Generated for Printi ng/Faxing/eTransmitting on: 1 10/23/2024 05:03 PM ALTERATIONS EXPERT
--- OUTSIDE RECORDS SUMMARY | 2025-03-29 05:30 | XMS_ITS ---
Author Organization [facility] Address [address] [place] [address] Care Team Providers Care Gluing Machine Operator Name Role Phone Nereida Abel MD Primary Care Provider Unav Sharmin Hamilton Unavailable [phone] Allergies Allergen (clinical drug ingredient) Drug/Non Drug Allergy documented on EMR Reaction Allergy Type Onset Date Status cephalexin Cephalexin Dizziness Drug Allergy Activ e REASON FOR VISIT Right Sacroiliac Joint Injection Therapeutic Medications Medication SIG (Take, Route, Frequency, Duration) Notes Start Date End Date Status Diclofenac Sodium 75 MG 1 tablet as need ed Orally Twice a day as needed Not-Taking Claritin 10 MG 1 tablet Orally Once a day for 30 day(s) Active Multivitamin - 1 tablet Orally Once a day for 30 day(s) Active Aspirin 325 mg one tab orally daily Active valACYclovir HCl 500 MG 1 tablet Orally Once a day Active DULoxetine HCl 30 MG 1 capsule Orally Once a day for 30 days Active Cyclobenzaprine HCl 10 MG 1-2 tablet at bedtime as needed Orally Once a day for 30 days Stop Methocarbamol . Start Flexeril. Active Finasteride 5 MG 1 tablet Orally Once a day Not-Taking Tramadol 50 mg one tab orally every 4-6 hours prn pain Active Methocarbamol 750 MG 1 tablet Orally every 4-6 hours as needed for 30 days Not-Taking Atorvastatin Calcium 80 MG 1 tablet Orally Once a day Active Encounters Encounter Location Date Provider Diagnosis [facility] [address] 03/29/2025 Sharmin Landon Plan Of Treatment No Information Progress Notes * Javier HENDRIXDOB:1979 (45 yo M)Acc No.[id number]:03/29/2025 Injection Patient: Javier DELCID Provider: Sergey Landon MD :1980 A ge:44 Y S ex:Male Date:03/29/2025 Address:[address] Pcp:Nereida Abel MD Subjective: * Chief Complaints: * 1 . Right Sacroiliac Joint Injection Therapeutic. * Medical History: S troke (Left Cerebellar-Poor balance residual), Sleep Apnea (no device), 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 * Medications: T aking Multivitamin - Tablet 1 tablet Orally Once a day , Taking Claritin 10 MG Tablet 1 tablet Orally Once a day , Taking valACYclovir HCl 500 MG Tablet 1 tablet Orally Once a day , Taking Aspirin 325 mg tablet one tab orally daily , Taking Atorvastatin Calcium 80 MG Tablet 1 tablet Orally Once a day , Taking Tramadol 50 mg tablet one tab orally every 4-6 hours prn pain , Taking Cyclobenzaprine HCl 10 MG Tablet 1- 2 tablet at bedtime as needed Orally Once a day , Notes to Pharmacist: Stop Methocarbamol. Start Flexeril., Taking DULoxetine HCl 30 MG Capsule Delayed Release Particles 1 capsule Orally Once a day , Not-Taking/PRN Methocarbamol 750 MG Tablet 1 tablet Orally every 4-6 hours as needed , Not-Taking/PRN Finasteride 5 MG Tablet 1 tablet Orally Once a day , Not-Taking/PRN Diclofenac Sodium 75 MG Tablet Delayed Release 1 tablet as needed Orally Twice a day as needed * Allergies: C ephalexin: Dizziness. Objective: * Vitals: Assessment: Plan: * Treatment: * * Electronic signature of Sharmin Landon MD on 08/23/2025 at 05:03 PM SPOOLING MACHINE OPERATOR Sign off status: Pending * Provider: Sergey Ladnon MD Date: 03/29/2025 Generated for Veena mooney/Alyssa/Neeta on: 10/23/2024 05:03 PM SPOOLING MACHINE OPERATOR
--- OUTSIDE RECORDS SUMMARY | 2025-05-29 05:15 | XMS_ITS ---
Author Organization [facility] Address [address] [place] [address] Care Team Providers Care Auto Clutch Rebuilder Name Role Phone Page BURT, Nereida Primary Care Provider Unav ailable Sharmin Landon Unavailable [phone] Allergies Allergen (clinical drug ingredient) Drug/Non Drug Allergy documented on EMR Reaction Allergy Type Onset Date Status cephalexin Cephalexin Dizziness Drug Allergy Activ e REASON FOR VISIT Right Lumbar Three Lumbar Four Lumbar Four Lumbar Five Facet Joint Injection Encounters Encounter Location Date Provider Diagnosis [facility]-[address] [address] 05/29/2025 Sharmin Landon Plan Of Treatment No Information Progress Notes * Javier HENDRIXDOB:1979 (45 yo M)Acc No.[id number]:05/29/2025 Injection Patient: Javier DELCID Provider: Sergey Landon MD :1980 A ge:44 Y S ex:Male Date:05/29/2025 Address:[address] Pcp:Nereida Abel MD Subjective: * Chief Complaints: * Medical History: S troke (Left Cerebellar-Poor balance residual), Sleep Apnea (no device), 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 * Allergies: C ephalexin: Dizziness. Objective: Assessment: Plan: * Treatment: * * Electronic signature of Sharmin Landon MD on 08/23/2025 at 05:03 PM PROCESS PLANT OPERATOR Sign off status: Pending * Provider: Sergey Landon MD Date: 0 05/29/2025 Generated for Veena mooney/Alyssa/Neeta on: 1 10/23/2024 05:03 PM PROCESS PLANT OPERATOR
--- OUTSIDE RECORDS SUMMARY | 2025-06-26 05:30 | XMS_ITS ---
Author Organization [facility] Address [address] [place] [address] Care Team Providers Care Title Camera Operator Name Role Phone Nereida Abel MD Primary Care Provider Unav ailable Sharmin Landon Unavailable [phone] REASON FOR VISIT Right Lumbar Three Lumbar Four Lumbar Four Lumbar Five Facet Joint Injection Medications Medication SIG (Take, Route, Frequency, Duration) Notes Start Date End Date Status Atorvastatin Calcium 80 MG 1 tablet Oral ly Once a day Active valACYclovir HCl 500 MG 1 tablet Orally Once a day Active Claritin 10 MG 1 tablet Orally Once a day for 30 day(s) Active Multivitamin - 1 tablet Orally Once a day for 30 day(s) Active CeleBREX 200 MG 1 capsule Orally Onc e a day PRN for 30 06/14/2025 Active Aspirin 325 mg one tab orally daily Active Encounters Encounter Location Date Provider Diagnosis [facility]-[address] [address] 06/26/2025 Sharmin Landon Lumbar Spondylosis without Myelopathy M47.816 Assessments Encounter Date Diagnosis (ICD Code) Assessment Notes Treatment Notes Treatment Clinical Notes Section Notes 06/26/2025 Lumbar Spondylosis without Myelopathy (ICD-10 - M47.816) Plan Of Treatment No Information Procedure Notes * Category Sub-Category Detail Notes Radiology Interpretation Moderative to advanced spondylosis L3-4, L4-5, L5-S1 Disc space narrowing at L4-5, L5-S1 End plate changes superior and inferior L4 and L5 Progress Notes * Javier HENDRIXDOB:1979 (45 yo M)Acc No.[id number]:06/26/2025 Injection Patient: Monique GILESJavier PANDYA Provider: Sergey Landon MD :1980 A ge:45 Y S ex:Male Date:06/26/2025 Address:[place] [id number] Pcp:Nereida Abel MD Subjective: * Chief Complaints: * 1 . Right Lumbar Three Lumbar Four Lumbar Four Lumbar Five Facet Joint Injection. * HPI: C omplaints: PROCEDURE: 1. Facet joint injection at L3-4 L4-L5 on the right. 2. Fluoroscopic imaging for needle placement. 3. Radiographic interp retation: Lumbar Spine. DIAGNOSIS: Lumbar Spondylosis MEDICATION USED: 1. Facet joint local anesthetic: 2ml Bupivacaine 0.5% 2. Epidural local anesthetic: 5 ml Lidocaine 1% 3. Steroid: 80mg Depomedrol (methylprednisolone) 4. Contrast agent: 3 ml Omnipaque-300 SUBJECTIVE: This patient presents today for a right L3-4 L4-L5 facet joint injection. PROCEDURE DESCRIPTION: Informed consent for the procedure was obtained and the patient signed the procedure consent form. The patient was given sufficient time to ask questions related to the procedure and to discuss expectations and the overall plan of treatment. The patient was brought into the procedure room and placed in the appropriate position for the procedure as noted above. Betadine (or alcohol if the patient carried an iodine allergy history) was used to prepare the skin over the appropriate location for the injection and sterile drapes were applied. Strict aseptic technique was followed during the procedure. The patient was brought into the procedure room and placed in the appropriate position for the procedure above. An initial RADIOLOGIC EXAMINATION, of the facet JOINTS; LESS THAN THREE VIEWS was performed with a c-arm fluoroscope. The initial survey found moderate degenerative changes noted through the FACET joint. A 22 Ga spinal needle was used for the procedure. This was advanced from a lateral position and angled into the joint under oblique fluoroscopic views used to sharpen joint margins. Once needle placement was confirmed within the joint, the arthrogram was performed and reported below. Then the patient received the steroid and local anesthetic as noted for each joint injected above after careful aspiration for blood. The patient had no ill effects from the procedure. Vital signs were monitored and found to be stable throughout. The patient was taken to and watched in the recovery area for an appropriate period of time and then released to home in the care of a responsible adult once discharge criteria were met and discharge planning/subsequent appointments were made. FLUOROSCOPIC IMAGING FINDINGS: An initial survey of the spine in the area noted was performed with the C-arm fluoroscope. The following were noted: 1. moderate degenerative changes of the lumbosacral spine. JOINT ARTHROGRAM: 1. Contrast was seen to spread evenly within the joint COMPLICATIONS: NONE RESULTS: ___% pain relief achieved PLAN: 1. Follow post procedure instructions and complete post procedure diary. 2. Continue on present medications. 3. Follow up by telephone in a few days and return for follow up appointment within several weeks to check on response to the injection or to repeat the injection and to make any necessary medication adjustment and determine subsequent treatment steps. * Medical History: * Medications: T aking Aspirin 325 mg tablet one tab orally daily , Taking Multivitamin - Tablet 1 tablet Orally Once a day , Taking Claritin 10 MG Tablet 1 tablet Orally Once a day , Taking valACYclovir HCl 500 MG Tablet 1 tablet Orally Once a day , Taking Atorvastatin Calcium 80 MG Tablet 1 tablet Orally Once a day , Taking CeleBREX 200 MG Capsule 1 capsule Orally Once a day PRN Objective: * Vitals: Assessment: * Assessment: 1. L umbar Spondylosis without Myelopathy - M47.816 (Primary) Plan: * Treatment: * Procedures: R adiology Interpretation: Disc space narrowing at L 4-5, L5-S1. End plate changes superior and inferior L 4 and L5. Moderative to advanced spondylosis L 3-4, L4-5, L5-S1. * Procedure Codes: 6 4493 INJ PARAVERT F JNT L/S 1 LEV, Modifiers: RT , 59843 INJ PARAVERT F JNT L/S 2 LEV, Modifiers: RT , 84547 X-RAY EXAM OF SPINE, J1010 Injection, methylprednisolone acetate, 1 mg, Units: 80.00 , Modifiers: JZ * * Electronic signature of Sharmin Landon MD on 08/23/2025 at 05:04 PM BOATBUILDER APPRENTICE WOOD Sign off status: Pending * Provider: Sergey Landon MD Date: 0 06/26/2025 Generated for Veena mooney/Alyssa/Neeta on: 10/23/2024 05:04 PM BOATBUILDER APPRENTICE WOOD History and Physical Notes * HPI (History of Present Illness) Category Sub-Category Detail Notes Category Not es Complaints PROCEDURE: 1. Facet joint injection at L3-4 L4-L5 on the right. 2. Fluoroscopic imaging for needle placement. 3. Radiographic interp retation: Lumbar Spine. DIAGNOSIS: Lumbar Spondylosis MEDICATION USED: 1. Facet joint local anesthetic: 2ml Bupivacaine 0.5% 2. Epidural local anesthetic: 5 ml Lidocaine 1% 3. Steroid: 80mg Depomedrol (methylprednisolone) 4. Contrast agent: 3 ml Omnipaque-300 SUBJECTIVE: This patient presents today for a right L3-4 L4-L5 facet joint injection. PROCEDURE DESCRIPTION: Informed consent for the procedure was obtained and the patient signed the procedure consent form. The patient was given sufficient time to ask questions related to the procedure and to discuss expectations and the overall plan of treatment. The patient was brought into the procedure room and placed in the appropriate position for the procedure as noted above. Betadine (or alcohol if the patient carried an iodine allergy history) was used to prepare the skin over the appropriate location for the injection and sterile drapes were applied. Strict aseptic technique was followed during the procedure. The patient was brought into the procedure room and placed in the appropriate position for the procedure above. An initial RADIOLOGIC EXAMINATION, of the facet JOINTS; LESS THAN THREE VIEWS was performed with a c-arm fluoroscope. The initial survey found moderate degenerative changes noted through the FACET joint. A 22 Ga spinal needle was used for the procedure. This was advanced from a lateral position and angled into the joint under oblique fluoroscopic views used to sharpen joint margins. Once needle placement was confirmed within the joint, the arthrogram was performed and reported below. Then the patient received the steroid and local anesthetic as noted for each joint injected above after careful aspiration for blood. The patient had no ill effects from the procedure. Vital signs were monitored and found to be stable throughout. The patient was taken to and watched in the recovery area for an appropriate period of time and then released to home in the care of a responsible adult once discharge criteria were met and discharge planning/subsequent appointments were made. FLUOROSCOPIC IMAGING FINDINGS: An initial survey of the spine in the area noted was performed with the C-arm fluoroscope. The following were noted: 1. moderate degenerative changes of the lumbosacral spine. JOINT ARTHROGRAM: 1. Contrast was seen to spread evenly within the joint COMPLICATIONS: NONE RESULTS: ___% pain relief achieved PLAN: 1. Follow post procedure instructions and complete post procedure diary. 2. Continue on present medications. 3. Follow up by telephone in a few days and return for follow up appointment within several weeks to check on response to the injection or to repeat the injection and to make any necessary medication adjustment and determine subsequent treatment steps.
--- OUTSIDE RECORDS SUMMARY | 2025-07-24 05:30 | XMS_ITS ---
Author Organization [facility] Address [address] [place] [address] Care Team Providers Care Scratcher Name Role Phone Page BURT, Nereida Primary Care Provider Unav ailable Sharmin Landon Unavailable [phone] Allergies Allergen (clinical drug ingredient) Drug/Non Drug Allergy documented on EMR Reaction Allergy Type Onset Date Status cephalexin Cephalexin Dizziness Drug Allergy Activ e REASON FOR VISIT Bilateral Lumbar Two Lumbar Three Epidural Steroid Injection Encounters Encounter Location Date Provider Diagnosis [facility]-[address] [address] 07/24/2025 Sharmin Landon Plan Of Treatment No Information Progress Notes * Javier HENDRIXDOB:1979 (45 yo M)Acc No.[id number]:07/24/2025 Injection Patient: Javier DELCID Provider: Sergey Landon MD :1980 A ge:45 Y S ex:Male Date:07/24/2025 Address: [address] [place], [place] [id number] Pcp:Nereida Abel MD Subjective: * Chief Complaints: * Medical History: S troke (Left Cerebellar-Poor balance residual), Sleep Apnea (no device), 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 * Allergies: C ephalexin: Dizziness. Objective: Assessment: Plan: * Treatment: * * Electronic signature of Sharmin Landon MD on 08/23/2025 at 09:52 AM NAILER HAND Sign off status: Pending * Provider: Sergey Landon MD Date: Generated for Veena mooney/Alyssa/Neeta on: 10/23/2024 09:52 AM NAILER HAND
--- NOTE | ~2025-08-23 | CT_ITS ---
EXAM/PROCEDURE: CT diagnostic chest wo con HISTORY: R05.3 - Chronic cough X 13 weeks, poss exp to asbestos COMPARISON: None available. TECHNIQUE: Noncontrast chest CT FINDINGS: The lungs are clear with no consolidation or effusion or pneumothorax. Central and large airways are patent. Heart size within normal limits. No bulky lymphadenopathy or masses on this noncontrast exam. Interatrial prosthesis or device present. The bones appear intact with mild multilevel degenerative changes throughout the thoracic spine. No acute process seen in the visualized upper abdomen. Diverticular disease incidentally noted in the visualized large bowel. IMPRESSION: No acute findings. Reviewed, dictated and finalized at location A. NEL MAN IMPRESSION: No acute findings.
--- OUTSIDE RECORDS SUMMARY | 2025-08-23 10:00 | XMS_ITS | Encounter Summary ---
Author Organization [facility] Healthcare Address [address] [place] [address] Care Team Providers Care Wood Technologist Name Role Phone Nereida Abel MD Primary Care Provider + Lorenzo Lin NP Unavailable Reason for Referral * MRI/CAT/PET Scan (Routine) - Pending Review Specialty Diagnoses / Procedures Referred By Isai shipley Referred To Contact Radiology Diagnoses Dyspnea on exertion Family history of ischemic heart disease Procedures CT Coronary Fractional Flow [place] Gail Fitzpatrick NP [address] [address] Phone: tel: fax: [address] [phone] Referral ID Status Reason Start Date Expiration Date V isits Requested Visits Authorized [id number] Pending Review 08/23/2025 09/22/2026 1 1 L BONDING ASSEMBLER * MRI/CAT/PET Scan (Routine) - Pending Review Specialty Diagnoses / Procedures Referred By Contdandre shipley Referred To Contact Radiology Diagnoses Dyspnea on exertion Family history of ischemic heart disease Procedures CTA Heart and Coronary Arteries W Morphology when Performed Gail Fitzpatrick NP [address] [address] Phone: tel: fax: [address] [phone] Referral ID Status Reason Start Date Expiration Date V isits Requested Visits Authorized [id number] Pending Review 08/23/2025 09/22/2026 1 1 L BONDING ASSEMBLER Reason for Visit * Reason Comments Pre-op Exam for extensive sinus surgery Encounter Details Date Type Department Care Team (Late st Contact Info) Description 08/23/2025 10:00 AM METAL BONDING ASSEMBLER Office Visit [facility] Cardiology [address] [place] [address] Gail Fitzpatrick NP [address] [place], [place] [id number] Dyspnea on exertion (Primary Dx); Family history of ischemic heart disease; Essential hypertension; Preoperative cardiovascular examination; Hyperlipidemia, unspecified hyperlipidemia type Social History Tobacco Use Types Packs/Day Years Used Date Smoking Tobacco: Never Smokeless Tobacco: Former Chew Quit: 11/20/2010 Sex and Gender Information Value Date Recorded Sex Assigned at Not on file Legal Sex Male 9:34 AM METAL BONDING ASSEMBLER Gender Identity Not on file Sexual Orientation Not on file documented as of this encounter Last Filed Vital Signs Vital Sign Reading Time Taken Comments Blood Pressure 124/72 08/23/2025 10:10 AM METAL BONDING ASSEMBLER Pulse 76 08/23/2025 10:10 AM METAL BONDING ASSEMBLER Temperature - - Respiratory Rate - - Oxygen Saturation 97% 08/23/2025 10:10 AM METAL BONDING ASSEMBLER Inhaled Oxygen Concentration - - Weight 109.8 kg (242 lb) 08/23/2025 10:10 AM METAL BONDING ASSEMBLER Height 180.3 cm (5' 11) 08/23/2025 10:10 AM METAL BONDING ASSEMBLER Body Mass Index 33.75 08/23/2025 10:10 AM METAL BONDING ASSEMBLER documented in this encounter Functional Status * BP Location Answer Date of Assessment Author Left arm 08/23/2025 10:10 AM METAL BONDING ASSEMBLER Mable Kearns MA * BP Location Answer Date of Assessment Author Left arm 08/23/2025 10:10 AM METAL BONDING ASSEMBLER Mable Kearns MA documented as of this encounter Patient Instructions * Patient Instructions* Gail Fitzpatrick NP - 08/23/2025 10:00 AM METAL BONDING ASSEMBLER To schedule the Coronary CTA, call [facility] at [phone] L BONDING ASSEMBLER documented in this encounter Ordered Prescriptions Prescription Sig Dispense Quantity Refills Last Filled Start Date End Date losartan (COZAAR) 25 mg tabletIndications: Essential hypertension Take 1 tablet (25 mg total) by mouth daily 90 tablet 3 08/23/2025 08/23/2026 documented in this encounter Progress Notes * Gail Fitzpatrick NP - 08/23/2025 10:00 AM CST [facility] Cardiology [address] [place] [address] Date of Visit: 08/23/2025 Patient ID: Javier Schneider 1980 Chief Complaint Patient presents with Pre-op Exam for extensive sinus surgery Javier Schneider is a 45 y.o. male who is an established patient of Dr. Borrero with a historyof stroke and PFO closure coming to the office for preoperative assessment. History of Present Illness: Javier Schneider is a 45 y.o. male with a history of a stroke occurring at a unusually young age. He was found at that time in 2018 to have a patent foramen ovale. He was referred from his PCP to structural criminalist at [facility] who performed a percutaneous closure of thisin May of 2019. He had no other cardiac diagnosis or pathology that was of concern. He received a 18 mm cribriform closure device with a very good result and no residual shunting immediately during the procedure or in follow-up echocardiography. He also carries the diagnosis of sleep apnea. In July of 2024 he was referred to the office for a exercise stress test which was completely unremarkable at a very high workload of over 14 Mets. Patient is otherwise doing very well and does not have any cardiovascular issues or complaints. He states he wished to continue to have established visits with a criminalist because ischemic heart disease is prevalent in his family. He tries to eat a healthy diet and is a very active gentleman he works at the [employer] in [place] and has a veryphysically active lifestyle. 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 04/27/2025 office visit with FAMILY DAY CARE WORKER: He is here to discuss his blood pressure. It has been consistentlyelevated systolic 145-150, diastolic around 100. He has not had any chest pain but has had more frequent headaches. About a month ago PCP started lisinopril 5 mg daily but he has not seen an improvement. He also endorses dyspnea on exertion with activity such as climbing a lateral going upstairs which is a symptom that has become more noticeable over the past year. 08/23/2025 office visit with FAMILY DAY CARE WORKER: He is still having dyspnea on exertion. If he goes up 3 flights ofstairs he feels winded. The other day at work he had to drag a torch bottle about 40 yd and his cost him to get short of breath. Overall energy level is down. He gets an intermittent chest pain described as a tightness which is felt in the left lower pectoral area next to the sternum and last 30-60seconds at a time. He has an expiratory wheeze. He is also undergoing pulmonary evaluation. He developed a cough with lisinopril and has been off of it for a month. Blood pressures were 130-140/80-90at the last couple of weeks it has been going up to the 150s over 90s. He is anticipating sinus surgery weak and it will be in the hospital OR. 12-lead ECG performed in the office today was independently interpreted by me and showed Sinus arrhythmia, RAD, rate 71 beats per minute Medical History: Past Medical History: Diagnosis Date Hyperlipidemia PFO (patent foramen ovale) Sleep apnea, obstructive Stroke (HCC) Past Surgical History: Procedure Laterality Date PATENT FORAMEN OVALE CLOSURE Social History Tobacco Use Smoking Status Never Smokeless Tobacco Former Types: Chew Quit date: 11/20/2010 Social History Tobacco Use Smoking status: Never Smokeless tobacco: Former Types: Chew Quit date: 11/20/2010 Substance and Sexual Activity Drug use: None Sexual activity: None Alcohol Use: Not on file Family History Problem Relation Age of Onset Hypertension Father Review of Systems Constitutional: Negative for malaise/fatigue, weight gain and weight loss. Eyes: Positive for visual disturbance (Residual from previous stroke, no change). Cardiovascular: Positive for chest pain and dyspnea on exertion. Negative for leg swelling, near-syncope, orthopnea, palpitations, paroxysmal nocturnal dyspnea and syncope. Respiratory: Positive for cough and wheezing. Negative for sleep disturbances due to breathing. Hematologic/Lymphatic: Negative for bleeding problem. Does not bruise/bleed easily. Vital Signs: BP 124/72 (BP Location: Left arm, Patient Position: Sitting) Pulse 76 Ht 180.3 cm (5' 11) Wt109.8 kg (242 lb) SpO2 97% BMI 33.75 kg/m?? Physical Exam Constitutional: General: He is not in acute distress. Appearance: He is well-developed. He is obese. HENT: Head: Normocephalic and atraumatic. Eyes: General: No scleral icterus. Conjunctiva/sclera: Conjunctivae normal. Neck: Vascular: No JVD. Trachea: No tracheal deviation. Cardiovascular: Rate and Rhythm: Normal rate and regular rhythm. Heart sounds: Normal heart sounds. No murmur heard. Pulmonary: Effort: Pulmonary effort is normal. No respiratory distress. Breath sounds: Wheezing present. Comments: Expiratory wheeze sounds upper airways except RLL expiratory wheeze heard Skin: General: Skin is warm and dry. Neurological: Mental Status: He is alert and oriented to person, place, and time. Psychiatric: Mood and Affect: Mood normal. Behavior: Behavior normal. Allergies Allergen Reactions Lisinopril Cough Current Outpatient Medications: amitriptyline (ELAVIL) 25 mg tablet, Take 1 tablet (25 mg total) by mouth nightly at bedtime, Disp:, Rfl: aspirin 325 mg tablet, , Disp: , Rfl: atorvastatin (LIPITOR) 80 mg tablet, Take 1 tablet (80 mg total) by mouth daily, Disp: , Rfl: cyclobenzaprine (FLEXERIL) 10 mg tablet, TAKE 1 TO 2 TABLETS BY MOUTH ONCE DAILY AT BEDTIME NEEDED, Disp: , Rfl: loratadine 10 mg capsule, Take by mouth, Disp: , Rfl: valACYclovir (VALTREX) 500 mg tablet, , Disp: , Rfl: losartan (COZAAR) 25 mg tablet, Take 1 tablet (25 mg total) by mouth daily, Disp: 90 tablet, Rfl: 3 traMADoL (ULTRAM) 50 mg tablet, Take 1 tablet (50 mg total) by mouth every 6 (six) hours (Patient not taking: Reported on 08/23/2025), Disp: , Rfl: Lab Results Component Value Date POTASSIUM 4.2 06/08/2025 BUNSER 19 06/08/2025 CREATININE 1.03 06/08/2025 EGFR 93 06/08/2025 No results found for: WBC, HGB, HCT, MCV, PLT No results found for this or any previous visit (from the past 4 hours). Lab Results Component Value Date POCCHOL 128 10/17/2024 POCHDL 55 10/17/2024 POCTRIG 106 10/17/2024 POCLDL 51 10/17/2024 POCNONHDL 73 10/17/2024 POCCHLPL 128 10/17/2024 Assessment: Diagnoses and all orders for this visit: Dyspnea on exertion (Primary) - CTA Heart and Coronary Arteries W Morphology when Performed; Future - CT Coronary Fractional Flow [place]; Future Family history of ischemic heart disease - CTA Heart and Coronary Arteries W Morphology when Performed; Future - CT Coronary Fractional Flow [place]; Future Essential hypertension - losartan (COZAAR) 25 mg tablet; Take 1 tablet (25 mg total) by mouth daily Preoperative cardiovascular examination Plan/Recommendations: He has ongoing dyspnea on exertion. Stress test last July was negative. Recent echocardiogram was unremarkable. There was still a concern that his dyspnea on exertion could be an anginal equivalent due to his strong family history and his mother also had an unremarkable stress test when she was found to have flow-limiting coronary artery disease. I recommend further assessment with a coronary CT angiogram. Continue aspirin and statin. Continue pulmonary workup. He has hypertension. He developed a cough on lisinopril and developed renal insufficiency on hydrochlorothiazide. He is now off both lisinopril and hydrochlorothiazide. Start losartan 25 mg once daily. Patient is educated about potential side effect of cough or angioedema. His cardiac status appears stable to have sinus surgery at a tertiary care facility and I feel it is acceptable for him to proceed. He has annual appointment with Dr. Borrero scheduled in October and we will keep same but if indicated I would see him back sooner. 08/23/2025 CHEYANNE Villegas- Nurse Practitioner with [facility] This note is dictated and transcribed using [employer]. Store Warehouse Associate variancesmay occur. Despite proofreading, typographical errors may occur. L BONDING ASSEMBLER documented in this encounter Miscellaneous Notes * Addendum Note - Mable Kearns MA - 08/23/2025 10:00 AM CSTAddended by: MABLE KEARNS on: 08/23/2025 01:22 PM Modules accepted: Orders L BONDING ASSEMBLER documented in this encounter Plan of Treatment Scheduled Orders Name Type Priority Associated Diagnoses Orde r Schedule CTA Heart and Coronary Arteries W Morphology when Performed Imaging Schedule Routine, Read Routine (OP Routine) Dyspnea on exertion Family history of ischemic heart disease Expected: 08/23/2025, Expires: 08/23/2026 CT Coronary Fractional Flow [place] Imaging Schedule Routine, Read Routine (OP Routine) Dyspnea on exertion Family history of ischemic heart disease Expected: 11/23/2025, Expires: 11/23/2025 documented as of this encounter Procedures Procedure Name Priority Date/Time Associated Diagnosis Comments ELECTROCARDIOGRAM REPORT Routine 025 1:21 PM METAL BONDING ASSEMBLER Dyspnea on exertion Family history of ischemic heart disease Essential hypertension Preoperative cardiovascular examination POCT LIPID PANEL Routine 08/23/2025 10:0 8 AM METAL BONDING ASSEMBLER Hyperlipidemia, unspecified hyperlipidemia type documented in this encounter Results * Electrocardiogram Report (08/23/2025 1:21 PM METAL BONDING ASSEMBLER) us Gail Fitzpatrick NP ECG ORDERABLES Final Res ult * POCT lipid panel (08/23/2025 10:08 AM METAL BONDING ASSEMBLER) Cholesterol, POC 122 <200 MG/DL HDL, POC 42 >=40 mg/dL Triglycerides, POC 136 <=149 mg/dL LDL Cholesterol POC 52 <=129 mg/dL Chol/HDL Ratio, POC 1.2 NONE Non-HDL Cholesterol, POC 80 NONE mg/dL Cholesterol Total, POC 122 30 - 199 mg/dL Capillary blood 08/23/2025 1 0:08 AM METAL BONDING ASSEMBLER us Gail Fitzpatrick NP POINT OF CARE TEST ORDERA BLES Final Result documented in this encounter Visit Diagnoses Diagnosis Dyspnea on exertion- Primary Other dyspnea and respiratory abnormality Family history of ischemic heart disease Essential hypertension Unspecified essential hypertension Preoperative cardiovascular examination Pre-operative cardiovascular examination Hyperlipidemia, unspecified hyperlipidemia type documented in this encounter Discontinued Medications Medication Sig Discontinue Reason Start Date End Da te lisinopriL (PRINIVIL,ZESTRIL) 10 mg tablet Take 1 tablet (10 mg total) by mouth daily No longer taking - Do not display on AVS 07/20/2025 08/23/2025 documented as of this encounter Care Teams Wood Technologist Relationship Specialty Start Date End Date Nereida Abel MD PCP - General Family Medicine 10/07/23 Lorenzo Lin NP [address] [place] [address] Nurse Practitioner 07/25/25 documented as of this encounter
--- OUTSIDE RECORDS SUMMARY | 2025-08-23 17:03 | XMS_ITS | Clinical Summary ---
Author Organization [facility] Address [address] [place] [id number] Care Team Providers Care Tent Assembler Name Role Phone Unavailable Primary Care Provider Unavailabl e Social History Tobacco Use Types Packs/Day Years Used Date Smoking Tobacco: Never Assessed Sex and Gender Information Value Date Recorded Sex Assigned at Not on file Legal Sex Male 6:12 PM CDT Gender Identity Not on file Sexual Orientation Not on file Plan of Treatment Health Maintenance Due Date Last Done Comments Annual Physical 1985 Hepatitis C 2000 DTaP, Tdap and Td Vaccines ( 1 - Tdap) 2001 Hepatitis B Vaccines (1 of 3 - 19+ 3-dose series) 2001 HPV Vaccines (1 - 3-dose SCD M series) 2009 COVID-19 Vaccine (2024-2 6 season) 2025 Influenza Adult (#1) 2025 Hepatitis A Vaccines Aged Out No long er eligible based on patient's age to complete this topic Meningococcal B Vaccine Aged Out No l onger eligible based on patient's age to complete this topic Meningococcal Vaccine Aged Out No pamella marce eligible based on patient's age to complete this topic Pneumococcal Vaccine: Pediat rics (0 to 5 Years) and At-Risk Patients (6 to 49 Years) Aged Out No longer eligible b ased on patient's age to complete this topic RSV Immunizations Under 20 Months Aged Out No longer eligible based on patient's age to complete this topic
--- OUTSIDE RECORDS SUMMARY | 2025-08-23 17:04 | XMS_ITS | Patient Health Record ---
Author Organization [facility] Address [address] [place] [address] Care Team Providers Care Sales Analyst Name Role Phone Nereida Abel MD Primary Care Provider Unav ailable Sharmin Landon Unavailable [phone] Yoan Benítez Unavailable [phone] KadeemLia phipps Unavailable [phone] Allergies Allergen (clinical drug ingredient) Drug/Non Drug Allergy documented on EMR Reaction Allergy Type Onset Date Status cephalexin Cephalexin Dizziness Drug Allergy Activ e Results Component Value Reference Range Notes Results Reviewed date:06/11/2025 11:16:58 AM Interpretation: Performing Lab: Notes/Report: CODEINE <25 25 ng/mL MORPHINE <25 25 ng/mL HYDROCODONE <25 25 ng/mL HYDROMORPHONE <25 25 ng/mL OXYCODONE <25 25 ng/mL OXYMORPHONE <25 25 ng/mL FENTANYL <1.0 1.0 ng/mL MEPERIDINE <25 25 ng/mL TRAMADOL <25 25 ng/mL BUPRENORPHINE <2.0 2.0 ng/mL METHADONE <25 25 ng/mL TAPENTADOL <10.0 10.0 ng/mL CLONAZEPAM <10.0 10.0 ng/mL CLONAZEPAM METABOLITE <10.0 10.0 ng/mL ALPRAZOLAM <5.0 5.0 ng/mL ALPRAZOLAM METABOLITE <10.0 10.0 ng/mL DIAZEPAM <10.0 10.0 ng/mL NORDIAZEPAM <10.0 10.0 ng/mL TEMAZEPAM <10.0 10.0 ng/mL OXAZEPAM <10.0 10.0 ng/mL LORAZEPAM <10.0 10.0 ng/mL COCAINE <10.0 10.0 ng/mL COCAINE METABOLITE (BE) <10.0 10.0 ng/mL HEROIN METABOLITE (6-AM) <5.0 5.0 ng/mL PHENCYCLIDINE <10.0 10.0 ng/mL THC <5.0 5.0 ng/mL MDMA <25 25 ng/mL MDA <25 25 ng/mL MDEA <25 25 ng/mL METHAMPHETAMINE <25 25 ng/mL AMPHETAMINE <25 25 ng/mL PDF Reviewed date:06/11/2025 11:16:58 AM Interpretation: Performing Lab: Notes/Report: Reason For Referral Reason Axial Low Back Pain Referral Organization [facility] Referring Provider First Name Sharmin Referring Provider Last Name Dipesh Referring Provider Speciality Pain Medic luly Referred Provider Latricia Munguia Referred Provider Specialty Neurosurgery Referral Priority Routine Medications Medication SIG (Take, Route, Frequency, Duration) [...] 325 mg one tab orally daily Active CeleBREX 200 MG 1 capsule Orally Onc e a day PRN for 30 06/14/2025 Active Social History Tobacco Use: Social History Observation Description Date Details (start date - stop date) Never Smoker NA - NA Alcohol Screening Question Answer Notes Alcoholic drink in the past year No Points 0 Interpretation Negative Screening Question Answer Notes Are you a current smoker? never smoker Problems Problem Type SNOMED Code ICD Code Onset Dates Problem Status W/U Status Risk Notes Problem Lumbar spondylosis (138900075) Lumbar spondylosis (M47.816) Active confirmed Problem Solitary sacroiliitis (183825790) Sacroiliitis, not elsewhere classified (M46.1) Active confirmed Problem Degeneration of lumbosacral intervertebral disc (66984108) Other intervertebral disc degeneration, lumbosacral region (M51.37) Active confirmed Problem Lumbosacral spondylosis without myelopathy (disorder) (69899144) Spondylosis without myelopathy or radiculopathy, lumbosacral region (M47.817) Active confirmed Problem Vertebrogenic low back pain (4300034477717987 01) Vertebrogenic low back pain (M54.51) Active confirmed Problem Lumbosacral spondylosis without myelopathy (56899964) Lumbar Spondylosis without Myelopathy (M47.816) Active confirmed Encounters Encounter Location Date Provider Diagnosis [facility]- [address] [address] 11/28/2024 Sharminjez Hardyopher Lumbar Spondylosis without Myelopathy M47.816 [facility] [address] [place] [address] 01/31/2025 Sharmin Christopher Lumbar Spondylosis without Myelopathy M47.816 [facility]-[address] [address] 06/26/2025 Sharmin Christopher Lumbar Spondylosis without Myelopathy M47.816 [facility]- [address] [address] 08/31/2024 Fitzgerald Ahmed Lumbar Spondylosis without Myelopathy M47.816 and Vertebrogenic low back pain M54.51 [facility]- [address] [address] 10/03/2024 Sharmin Christopher Spondylosis without myelopathy or radiculopathy, lumbosacral region M47.817 [facility]- [address] [address] 10/17/2024 Sharmin Christopher Lumbar Spondylosis without Myelopathy M47.816 [facility]- [address] [address] 11/02/2024 Fitzgreald Ahmed Vertebrogenic low back pain M54.51 and Lumbar Spondylosis without Myelopathy M47.816 [facility]- [address] [address] 12/14/2024 Fitzgerald Ahmed Vertebrogenic low back pain M54.51 and Lumbar Spondylosis without Myelopathy M47.816 [facility]- [address] [address] 01/11/2025 Fitzgerald Ahmed Lumbar Spondylosis without Myelopathy M47.816 and Vertebrogenic low back pain M54.51 [facility] [address] [place] [address] 02/15/2025 Fitzgerald Ahmed Sacroiliitis, not elsewhere classified M46.1 and Lumbar Spondylosis without Myelopathy M47.816 [facility] [address] 04/03/2025 Sharmin Landon Sacroiliitis, not elsewhere classified M46.1 [facility] [address] 04/26/2025 Fitzgerald Ahmed Lumbar Spondylosis without Myelopathy M47.816 ; Low back pain, unspecified M54.50 and Sacroiliitis, not elsewhere classified M46.1 [facility] [address] 06/14/2025 Yoan Benítez LUMBAR SPINAL STENOSIS W/O CLAUDICATION M48.061 and Lumbar Spondylosis without Myelopathy M47.816 [facility] [address] [place] [address] Dr. Marino A [address] [place], [place] [id number] 01/12/2025 Sharmin Landon [facility] [address] [place] [address] 05/07/2025 Sharmin Landon Assessments Encounter Date Diagnosis (ICD Code) Assessment Notes Treatment Notes Treatment Clinical Notes Section Notes 11/28/2024 Lumbar Spondylosis without Myelopathy (ICD-10 - M47.816) 01/31/2025 Lumbar Spondylosis without Myelopathy (ICD-10 - M47.816) 06/26/2025 Lumbar Spondylosis without Myelopathy (ICD-10 - M47.816) 08/31/2024 Lumbar Spondylosis without Myelopathy (ICD-10 - M47.816) Assessment is unchanged from 06/15/2024 except as denoted below. 08/31/2024 Vertebrogenic low back pain (ICD-10 - M54.51) Assessment is unchanged from 06/15/2024 except as denoted below. 10/03/2024 Spondylosis without myelopathy or radiculopathy, lumbosacral region (ICD-10 - M47.817) 10/17/2024 Lumbar Spondylosis without Myelopathy (ICD-10 - M47.816) 11/02/2024 Vertebrogenic low back pain (ICD-10 - M54.51) Assessment is unchanged from 08/31/2024 except as denoted below. 11/02/2024 Lumbar Spondylosis without Myelopathy (ICD-10 - M47.816) Assessment is unchanged from 08/31/2024 except as denoted below. 12/14/2024 Vertebrogenic low back pain (ICD-10 - M54.51) Assessment is unchanged from 11/02/24 except as denoted below. 12/14/2024 Lumbar Spondylosis without Myelopathy (ICD-10 - M47.816) Assessment is unchanged from 11/02/24 except as denoted below. 01/11/2025 Lumbar Spondylosis without Myelopathy (ICD-10 - M47.816) Assessment is unchanged from 12/14/24 except as denoted below. 01/11/2025 Vertebrogenic low back pain (ICD-10 - M54.51) Assessment is unchanged from 12/14/24 except as denoted below. 02/15/2025 Sacroiliitis, not elsewhere classified (ICD-10 - M46.1) Assessment is unchanged from 01/11/25 except as denoted below. 02/15/2025 Lumbar Spondylosis without Myelopathy (ICD-10 - M47.816) Assessment is unchanged from 01/11/25 except as denoted below. 04/03/2025 Sacroiliitis, not elsewhere classified (ICD-10 - M46.1) 04/26/2025 Lumbar Spondylosis without Myelopathy (ICD-10 - M47.816) Assessment is unchanged from 02/15/2025 except as denoted below. 04/26/2025 Low back pain, unspecified (ICD-10 - M54.50) Assessment is unchanged from 02/15/2025 except as denoted below. 06/14/2025 LUMBAR SPINAL STENOSIS W/O CLAUDICATION (ICD-10 - M48.061) Assessment is unchanged from 04/26/25 except as denoted below. 06/14/2025 Lumbar Spondylosis without Myelopathy (ICD-10 - M47.816) Assessment is unchanged from 04/26/25 except as denoted below. 04/26/2025 Sacroiliitis, not elsewhere classified (ICD-10 - M46.1) Assessment is unchanged from 02/15/2025 except as denoted below. 08/31/2024 Other Notes: Significant time was spent due to complex decision-making as a result of the patient's complicated pain issues. The plan is as follows: Patient will continue exercise therapy regimen. The Intracept procedure has currently been denied by his insurance at this time. We will schedule a right and then left L4-5/L5-S1 facet joint injection to target spondylosis and axial back pain. He has previously attempted a medial branch block en route to lumbar RFA, but unfortunately, it did not provide any significant relief. We are hopeful that an injection directly into the facet joints will provide him with good reduction of pain symptoms. We discussed trial of possible OTC THC and/or CBD products for pain control and better sleep. The patient would like to avoid opiate narcotics due to restrictions at his work place and due to worry about addiction potential. We will prescribe Baclofen 10 mg BID PRN to target pain from taut and tender muscles/muscle spasms and to improve sleep. Side effects discussed. Patient advised to contact the clinic if they develop any new or worsening pain symptoms. The total encounter time for today's visit was 30 minutes which was spent on preparation for the visit, e.g. chart review, and in the activities documented in this note. Assessment is unchanged from 06/15/2024 except as denoted below. 11/02/2024 Other Notes: Significant time was spent due to complex decision-making as a result of the patient's complicated pain issues. The plan is as follows: Patient will continue exercise therapy regimen. We will schedule a Right L3, L4, L5 Medial Branch Block X1 en route to a Radiofrequency Ablation, if successful, to target spondylosis and back pain. Patient has already had a successful diagnostic facet joint injection with good response. We discussed in detail the risks and benefits of the radio frequency ablation procedure with the patient and answered any questions the patient had. We will increase the dosage of Baclofen to 20 mg up to TID PRN to check for increased effect. Patient denies side effects. Side effects reviewed again today. We will prescribe a Zynex unit to help target taut and tender muscles. Patient advised to contact the clinic if they develop any new or worsening pain symptoms. The total encounter time for today's visit was 30 minutes which was spent on preparation for the visit, e.g. chart review, and in the activities documented in this note. Assessment is unchanged from 08/31/2024 except as denoted below. 12/14/2024 Other Notes: Significant time was spent due to complex decision-making as a result of the patient's complicated pain issues. The plan is as follows: Patient will continue exercise therapy regimen. We will prescribe Methocarbamol 750 mg 1 tablets PO q4 hours PRN to target pain from taut and tender muscles/muscle spasms and to improve sleep. Side effects discussed. Lumbar RFA is pending scheduling. The patient reports that, despite the recent procedures/intervent ions, their vertebrogenic low back pain is still present. The vertebrogenic low back pain has been present for over 5 years, and waxes and wanes but becomes severe when it flares up and is rated 8-9/10. We discussed the Intracept procedure as a good, long-term option for pain relief for patient's vertebrogenic back pain (M54.51). The patient has tried multidisciplinary care measures including lifestyle changes, stretching, home exercises, physical therapy, medication management, and spinal procedures all without significant, sustained pain relief. Multiple spinal injections have not given long-term relief of the patient's vertebrogenic low back pain symptoms. Patient also has Modic Type I and II changes noted on MRI. We reviewed the procedure details, risks, benefits, alternatives and expected outcomes with the patient. Informed the patient that the procedure is performed at a surgery center under general anesthesia, and that the patient will need a sprinkler driver on procedure day. The patient expresses understanding, and all questions were answered to patient's satisfaction. Educational literature was given to the patient to review. We will plan for the Intracept procedure at the L4, L5 vertebrae levels. Further explained to the patient that the Intracept procedure is targeting their vertebrogenic, non-radiating low back pain only. Other diagnoses and pain generators will be addressed. The patient expresses understanding. Follow-up in 1 month for reassessment. Patient advised to contact the clinic if they develop any new or worsening pain symptoms. The total encounter time for today's visit was 30 minutes which was spent on preparation for the visit, e.g. chart review, and in the activities documented in this note. Please refer back to the HPI and physical exam sections of this note for further details regarding this encounter. Assessment is unchanged from 11/02/24 except as denoted below. 01/11/2025 Other Notes: Significant time was spent due to complex decision-making as a result of the patient's complicated pain issues. The plan is as follows: Patient will continue exercise therapy regimen. We will prescribe Methocarbamol 750 mg 1 tablets PO q4 hours PRN to target pain from taut and tender muscles/muscle spasms and to improve sleep. Side effects discussed. The previous prescription was mistakenly sent without the as needed designation. Patient received a phone call recently to the schedule the lumbar RFA. He is looking forward to that. We will prescribe a Medrol Dose Pack _#21 to aid in acute pain flare and decrease inflammation if this occurs after the lumbar RFA. Patient has been advised to not take NSAIDS such as Naproxen or Ibuprofen, etc., while taking this medication. Patient acknowledges understanding verbally. Patient advised to contact the clinic if they develop any new or worsening pain symptoms. The total encounter time for today's visit was 30 minutes which was spent on preparation for the visit, e.g. chart review, and in the activities documented in this note. Please refer back to the HPI and physical exam sections of this note for further details regarding this encounter. Assessment is unchanged from 12/14/24 except as denoted below. 02/15/2025 Other Notes: Significant time was spent due to complex decision-making as a result of the patient's complicated pain issues. The plan is as follows: Patient will continue exercise therapy regimen. We will schedule a Right sacroiliac injection to target sacroiliitis that is causing posterior hip pain. We will order an x-ray of the pelvis to rule out tumor, fracture, or dislocation. We will prescribe Duloxetine 30 mg 1 tablet twice daily for chronic pain. Side effects discussed. Patient will start with 1 tablet once daily for one week, and the increase to two tablets daily thereafter. We will prescribe Cyclobenzaprine (Flexeril) 10 mg 1 tablet PO BID PRN to target pain from taut and tender muscles/muscle spams and to improve sleep. Side effects discussed. Patient advised to contact the clinic if they develop any new or worsening pain symptoms. The total encounter time for today's visit was 30 minutes which was spent on preparation for the visit, e.g. chart review, and in the activities documented in this note. Please refer back to the HPI and physical exam sections of this note for further details regarding this encounter. Assessment is unchanged from 01/11/25 except as denoted below. 04/26/2025 Other Notes: Significant time was spent due to complex decision-making as a result of the patient's complicated pain issues. The plan is as follows: Patient will continue exercise therapy regimen. We will schedule a Right L3-4/L4-5 facet joint injection to target spondylosis and axial back pain. Patient has tried and failed RFA, but reported good relief from a previous facet joint injection. We discussed the SPRINT peripheral nerve stimulator as a good option to target patient's chronic and severe low pain as the pain is returning already from the previously completed lumbar RFA. This pain has been ongoing for over 3 years. The patient has tried and failed multiple conservative treatment options including medications, injections, RFA, and physical therapy in the past. We reviewed how neuromodulation works and reviewed the risks, benefits, and alternatives. The patient has no known surgical contraindications nor substance abuse issues. Medial branch nerve blocks have already been completed to check for benefit. All questions were answered to patient's satisfaction. Literature given to review. Will prescribe a short course of hydrocodone-acetamin ophen for patient's breakthrough pain. Discussed medication risks/potential side effects with the patient. Patient expresses understanding and denies a history of kidney or liver disease. Will obtain drug screen today. Follow-up in 1 month for reassessment of low back pain. Patient advised to contact the clinic if they develop any new or worsening pain symptoms. The total encounter time for today's visit was 30 minutes which was spent on preparation for the visit, e.g. chart review, and in the activities documented in this note. Please refer back to the HPI and physical exam sections of this note for further details regarding this encounter. Assessment is unchanged from 02/15/2025 except as denoted below. 06/14/2025 Other Notes: Significant time was spent due to complex decision-making as a result of the patient's complicated pain issues. The plan is as follows: Patient will continue exercise therapy regimen. Will prescribe Celebrex for patient's acute pain and to reduce inflammation. Discussed medication risks/potential side effects with the patient. Advised the patient to not take any other NSAIDs while taking this medication. The patient expresses understanding. The patient denies history of kidney or liver disease. Will refer pt to [facility], for surgical consultation. The patient has tried conservative measures for his LBP, including: child care nurse, PT, and medications. The pt has also tried multiple spinal injections and an RFA without significant relief of his pain. Due to this, will schedule the patient for a bilateral L2/3 LOPEZ to target pain and symptoms stemming from stenosis. Discussed procedure details, risks, benefits, alternatives and expected outcomes with the patient. The patient expresses understanding. All patient questions were answered to the patient's satisfaction. We will not add or change any other medications at this time as the patient is currently tolerating all medications with no significant side effects. Advised pt to contact clinic if they develop any new/worsening symptoms or pain The total encounter time for today's visit was 30 minutes which was spent on preparation for the visit, e.g. chart review, and in the activities documented in this note. Please refer back to the HPI and physical exam sections of this note for further details regarding this encounter. Assessment is unchanged from 04/26/25 except as denoted below. 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
--- OUTSIDE RECORDS SUMMARY | 2025-08-23 17:04 | XMS_ITS | Clinical Summary ---
Author Organization [facility] Address [address] [place] [address] Care Team Providers Care Cleaner And Dyer Name Role Phone Nereida Abel MD Primary Care Provider + Lorenzo Lin SENIOR ACCOUNT DIRECTOR Unavailable Allergies Active Allergy Reactions Criticality Noted Date Comments Lisinopril Cough Low 08/23/2025 Medications aspirin 325 mg tablet 2 Active atorvastatin (LIPITOR) 80 mg tablet Take 1 tablet (80 mg total) by mouth daily 2 Active loratadine 10 mg capsule Take by mouth Active valACYclovir (VALTREX) 500 mg tablet 2 Active traMADoL (ULTRAM) 50 mg tablet Take 1 tablet (50 mg total) by mouth every 6 (six) hours Active amitriptyline (ELAVIL) 25 mg tablet Take 1 tablet (25 mg total) by mouth nightly at bedtime 5 Active cyclobenzaprine (FLEXERIL) 10 mg tablet TAKE 1 TO 2 TABLETS BY MOUTH ONCE DAILY AT BEDTIME NEEDED 5 Active losartan (COZAAR) 25 mg tabletIndication s:Essential hypertension Take 1 tablet (25 mg total) by mouth daily 90 tablet 3 5 08/23/20 26 Active lisinopriL (PRINIVIL,ZESTRI L) 10 mg tablet Take 1 tablet (10 mg total) by mouth daily 90 tablet 3 5 08/23/20 25 Discontinue d(No longer taking - Do not display on AVS) Active Problems Problem Noted Date Diagnosed Date Personal history of transien t ischemic attack (TIA), and cerebral infarction without residual deficits 10/17/2024 S/P percutaneous patent foramen ovale closure Hyperlipidemia 03/27/2022 Other sequelae of other cerebrovascular disease 03/27/2022 Encounters Date Type Department Care Team Description 08/23/2025 10:00 AM MARKETING OPERATIONS CONSULTANT Office Visit [facility] Cardiology [address] [place] [address] [place] [phone] Gail Fitzpatrick NP Dyspnea on exertion (Primary Dx); Family history of ischemic heart disease; Essential hypertension; Preoperative cardiovascular examination; Hyperlipidemia, unspecified hyperlipidemia type 08/10/[address] [phone] Javier Borrero MD 07/25/2025 Telephone [place] [address] [place] [phone] Javier Borrero MD Cough; Shortness of Breath; Med Management 07/05/2025 Telephone [place] [address] [place] [phone] Barrett Jerez MD 06/11/2025 Telephone [place] [address] [place] [phone] Gail Fitzpatrick NP Lab Results; BP readings 06/11/2025 Results Follow-Up [place] [address] [place] [phone] Gail Fitzpatrick NP Basic metabolic panel 05/23/2025 Telephone [place] [address] [place] [phone] Javier Borrero MD from Last 3 Months Surgical History Surgery Date Site/Laterality Comments PATENT [...] on file Legal Sex Male 9:34 AM MARKETING OPERATIONS CONSULTANT Gender Identity Not on file Sexual Orientation Not on file Last Filed Vital Signs Vital Sign Reading Time Taken Comments Blood Pressure 124/72 08/23/2025 10:10 AM MARKETING OPERATIONS CONSULTANT Pulse 76 08/23/2025 10:10 AM MARKETING OPERATIONS CONSULTANT Temperature - - Respiratory Rate - - Oxygen Saturation 97% 08/23/2025 10:10 AM MARKETING OPERATIONS CONSULTANT Inhaled Oxygen Concentration - - Weight 109.8 kg (242 lb) 08/23/2025 10:10 AM MARKETING OPERATIONS CONSULTANT Height 180.3 cm (5' 11) 08/23/2025 10:10 AM MARKETING OPERATIONS CONSULTANT Body Mass Index 33.75 08/23/2025 10:10 AM MARKETING OPERATIONS CONSULTANT Plan of Treatment Health Maintenance Due Date Last Done Comments Depression Screening 1982 Hepatitis C Screening 1982 Varicella Vaccines (1 of 2 - 13+ 2-dose series) 1995 Hepatitis B Screening 2000 Regular Well Visit/Exam 18-64 2000 HPV Vaccines (1 - 3-dose SCD M series) 2009 Influenza Vaccine (#1) 2025 DTaP/Tdap/Td Vaccine (2 - Td or Tdap) 02/04/2033 02/04/2023 Pneumococcal vaccine <65 Aged Out No longer eligible based on patient's age to complete this topic Procedures Procedure Name Priority Date/Time Associated Diagnosis Comments ELECTROCARDIOGRAM REPORT Routine 025 1:21 PM MARKETING OPERATIONS CONSULTANT Dyspnea on exertion Family history of ischemic heart disease Essential hypertension Preoperative cardiovascular examination POCT LIPID PANEL Routine 08/23/2025 10:0 8 AM MARKETING OPERATIONS CONSULTANT Hyperlipidemia, unspecified hyperlipidemia type BASIC METABOLIC PANEL Routine 06/08/2025 10:52 AM CDT Dyspnea on exertion from Last 3 Months Results * Electrocardiogram Report (08/23/2025 1:21 PM MARKETING OPERATIONS CONSULTANT) Gail Fitzpatrick NP ECG ORDERABLES Final Res ult * POCT lipid panel (08/23/2025 10:08 AM MARKETING OPERATIONS CONSULTANT) Cholesterol, POC 122 <200 MG/DL HDL, POC 42 >=40 mg/dL Triglycerides, POC 136 <=149 mg/dL LDL Cholesterol POC 52 <=129 mg/dL Chol/HDL Ratio, POC 1.2 NONE Non-HDL Cholesterol, POC 80 NONE mg/dL Cholesterol Total, POC 122 30 - 199 mg/dL Capillary blood 08/23/2025 1 0:08 AM MARKETING OPERATIONS CONSULTANT Gail Fitzpatrick SENIOR ACCOUNT DIRECTOR POINT OF CARE TEST ORDERA BLES Final Result * Basic metabolic panel (06/08/2025 10:52 AM CDT) Glucose 72 65 - 99 mg/dL [facility] Comment: Fasting reference interval BUN 19 7 - 25 mg/dL [facility] Creatinine 1.03 0.60 - 1.29 mg/dL [facility] eGFR 93 > OR = 60 mL/min/1.7 3m2 [facility] BUN/creat ratio SEE NOTE: 6 - 22 (calc) [facility] Comment: Not Reported: BUN and Creatinine are within reference range. Sodium 139 135 - 146 mmol/L [facility] Potassium, pl 4.2 3.5 - 5.3 mmol/L [facility] Chloride 104 98 - 110 mmol/L [facility] CO2 26 20 - 32 mmol/L [facility] Calcium 9.1 8.6 - 10.3 mg/dL [facility] Blood 06/08/2025 10:5 2 AM CDT 06/08/2025 10:52 AM CDT Gail Fitzpatrick SENIOR ACCOUNT DIRECTOR LAB BLOOD ORDERABLES Wanda l Result [facility] [id number] [address] [id number] from Last 3 Months Insurance [facility] Care Teams Cleaner And Dyer Relationship Specialty Start Date End Date Nereida Abel MD PCP - General Family Medicine 10/07/23 Lorenzo Lin NP [address] [place] [address] Nurse Practitioner 07/25/25
--- OUTSIDE RECORDS SUMMARY | 2025-08-23 17:04 | XMS_ITS | Clinical Summary ---
Author Organization [facility] Address [address] [place] [address] Care Team Providers Care Consular Officer Name Role Phone Bruno Mg MD Primary Care Provider [phone] [facility],non-owned Affiliates and Associated Physician Practices is amultiple site organization consisting of ambulatory clinics and hospital sitesin [place], [place], [place] and [place]. This disclosure is being madepursuant to the Care Everywhere program and may not contain all information available regarding this patient. Last updated 18.[facility] Allergies No known active allergies Medications * [...] by mouth once daily Active nystatin (MYCOSTATIN) 419957 UNIT/GM cream APPLY TO AFFECTED AREA TWICE [...] on file Legal Sex Male 5:16 PM LOSS PREVENTION CONSULTANT Gender Identity Not on file Sexual [...] 3 - 19+ 3-dose series) 2001 HPV VACCINE (1 - 3-dose SCDM series) 2009 DEPRESSION SCREENING 10/18/2024 COVID-19 VACCINE (1 - 2023-2 5 season) 2025 INFLUENZA VACCINE (#1) 2025 ZOSTER VACCINE (1 of 2) 2032 [...] this topic Medical Devices Implanted Type Area Pen Tester Device Identifier Shelf Expiration Date Model / Serial / Lot Occl Sept Cribifrm 18mm Implanted:Qty: 1 on 06/12/2019 by Javier Chan MD at [facility] [employer] 08/17/2023 [id number] Insurance AETNA ANTHEM AETNA AETNA AETNA AETNA AETNA AETNA AETNA Advance Directives * Full Code (Latest Code Status on File) Date Activated Date Inactivated Comments 06/12/2019 2:12 PM 06/14/2019 1:51 PM Care Teams Consular Officer Relationship Specialty Start Date End Date Bruno Mg MD [address] [place] [address] PCP - General 11/03/16
== END 2025-08-23 08:10 | disposition home or self-care (01) ==
PROVIDERS: PCP Family Medicine; Visit Provider Nurse Practitioner Family
DX: R05.3 Chronic cough (principal)
CPT/HCPCS: 71250

== ENCOUNTER 2025-10-08 17:20 | Outpatient (CLI) | payer OTHER, SELFPAY ==
--- OUTSIDE RECORDS SUMMARY | 2025-01-12 06:42 | XMS_ITS ---
Author Organization [facility] Address [address] [place] [address] Care Team Providers Care Political Geographer Name Role Phone Nereida Abel MD Primary Care Provider Unav Sharmin Hamilton Unavailable [phone] Allergies Allergen (clinical drug ingredient) Drug/Non Drug [...] Active Encounters Encounter Location Date Provider Diagnosis [facility] [address] R[address] [place], [place] [id number] 01/12/2025 Sharmin Landon Plan Of Treatment No Information Progress Notes * Javier HENDRIXDOB:1979 (45 yo M)Acc No.[id number]:01/12/2025 Patient: Javier DELCID :1980 A ge:44 Y S ex:Male Address:[place] [address] Subjective: * Chief Complaints: * P re-Procedure [...]
--- OUTSIDE RECORDS SUMMARY | 2025-01-31 03:45 | XMS_ITS ---
Author Organization [facility] Address [address] [place] [address] Care Team Providers Care Scientific Programmer Analyst Name Role Phone Page BURT, Nereida Primary Care Provider Unav ailable Sharmin Landon Unavailable [phone] REASON FOR VISIT Right L3,L4,L5 RFA Encounters Encounter Location Date Provider Diagnosis [facility] [address] [place] [address] 01/31/2025 Sharmin Ladnon Lumbar Spondylosis without Myelopathy M47.816 Assessments Encounter Date Diagnosis (ICD Code) Assessment Notes Treatment Notes Treatment Clinical Notes Section Notes 01/31/2025 Lumbar Spondylosis without Myelopathy (ICD-10 - M47.816) Plan Of Treatment No Information Progress Notes * Javier HENDRIXDOB:1979 (45 yo M)Acc No.[id number]:01/31/2025 Patient: Javier DELCID Provider: Sergey Landon MD :1980 A ge:44 Y S ex:Male Date:01/31/2025 Address:[address] Pcp:Nereida Abel MD * * Electronic signature of Sharmin Landon MD on 10/08/2025 at 06:27 PM EST Sign off status: Pending * Provider: Sergey Landon MD Date: 0 01/31/2025 Generated for Printi ng/Faxing/eTransmitting on: 1 12/09/2024 06:27 PM EST
--- OUTSIDE RECORDS SUMMARY | 2025-03-29 05:30 | XMS_ITS ---
Author Organization [facility] Address [address] [place] [address] Care Team Providers Care Wool Hat Finisher Name Role Phone Nereida Abel MD Primary Care Provider Unav Sharmin Hamilton Unavailable [phone] Allergies Allergen (clinical drug ingredient) Drug/Non Drug [...] Active Encounters Encounter Location Date Provider Diagnosis [facility] [address] 03/29/2025 Sharmin Landon Plan Of Treatment No Information Progress Notes * Javier HENDRIXDOB:1979 (45 yo M)Acc No.[id number]:03/29/2025 Injection Patient: Javier DELCID Provider: Sergey Landon MD :1980 A ge:44 Y S ex:Male Date:03/29/2025 Address:[address] Pcp:Nereida Abel MD Subjective: * Chief Complaints: [...] * Provider: Sergey Landon MD Date: 0 03/29/2025 Generated for Veena mooney/Alyssa/Neeta on: 12/09/2024 06:27 PM EST
--- OUTSIDE RECORDS SUMMARY | 2025-05-29 05:15 | XMS_ITS ---
Author Organization [facility] Address [address] [place] [address] Care Team Providers Care Vector Control Assistant Name Role Phone Page BURT, Nereida Primary Care Provider Unav ailable Sharmin Landon Unavailable [phone] Allergies Allergen (clinical drug ingredient) Drug/Non Drug Allergy documented on EMR Reaction Allergy Type Onset Date Status cephalexin Cephalexin Dizziness Drug Allergy Activ e REASON FOR VISIT Right Lumbar Three Lumbar Four Lumbar Four Lumbar Five Facet Joint Injection Encounters Encounter Location Date Provider Diagnosis [facility]-[address] [address] 05/29/2025 Sharmin Landon Plan Of Treatment No Information Progress Notes * Javier HENDRIXDOB:1979 (45 yo M)Acc No.[id number]:05/29/2025 Injection Patient: Javier DELCID Provider: Sergey Landon MD :1980 A ge:44 Y S ex:Male Date:05/29/2025 Address:[address] Pcp:Nereida Abel MD Subjective: * Chief Complaints: * Medical History: S troke (Left Cerebellar-Poor balance residual), Sleep Apnea (no device), 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 * Allergies: C ephalexin: Dizziness. Objective: Assessment: Plan: * Treatment: * * Electronic signature of Sharmin Landon MD on 10/08/2025 at 06:28 PM EST Sign off status: Pending * Provider: Sergey Landon MD Date: 0 05/29/2025 Generated for Veena mooney/Alyssa/Neeta on: 1 12/09/2024 06:28 PM EST
--- OUTSIDE RECORDS SUMMARY | 2025-07-24 05:30 | XMS_ITS ---
Author Organization [facility] Address [address] [place] [address] Care Team Providers Care Medical Device Engineer Name Role Phone Page BURT, Nereida Primary Care Provider Unav ailable Sharmin Landon Unavailable [phone] Allergies Allergen (clinical drug ingredient) Drug/Non Drug Allergy documented on EMR Reaction Allergy Type Onset Date Status cephalexin Cephalexin Dizziness Drug Allergy Activ e REASON FOR VISIT Bilateral Lumbar Two Lumbar Three Epidural Steroid Injection Encounters Encounter Location Date Provider Diagnosis [facility]-[address] [address] 07/24/2025 Sharmin Landon Plan Of Treatment No Information Progress Notes * Javier HENDRIXDOB:1979 (45 yo M)Acc No.[id number]:07/24/2025 Injection Patient: Javier DELCID Provider: Sergey Landon MD :1980 A ge:45 Y S ex:Male Date:07/24/2025 Address: [address] [place], [place] [id number] Pcp:Nereida Abel MD Subjective: * Chief Complaints: [...] 1 Generated for Veena mooney/Alyssa/Neeta on: 1 12/09/2024 06:28 PM EST
--- NOTE | ~2025-10-08 | XR_ITS ---
XR lumbar spine min 4V 10/08/2025 17:32 Indication: Renal stone Procedure: 5 views lumbar spine Comparison: No prior studies for comparison. Findings: There is significant loss of disc height at all lumbar levels most advanced at L2-3 through L4-5. There is multilevel facet hypertrophy. There is degenerative retrolisthesis at L2-3, L3-4 and L4-5. No significant alteration of alignment with flexion/extension. There is dextroscoliosis centered at L3 with right lateral listhesis of L3 on L4. Pedicles intact. There is a stone in the lower pole of the left kidney. Bowel gas pattern nonobstructive. Impression: 1: Severe lumbar spondylosis. Reviewed, dictated and finalized at location O. [employer] MEMBER Impression: 1: Severe lumbar spondylosis.
--- OUTSIDE RECORDS SUMMARY | 2025-10-08 17:28 | XMS_ITS | Clinical Summary ---
Author Organization [facility] Address [address] [place] [address] Care Team Providers Care Columnist Name Role Phone Bruno Mg MD Primary Care Provider [phone] [facility]),non-owned Affiliates and Associated Physician Practices is amultiple site organization consisting of ambulatory clinics and hospital sitesin [place], [place], [place] and [place]. This disclosure is being madepursuant to the Care Everywhere program and may not contain all information available regarding this patient. Last updated 18.[facility] Allergies No known active allergies Medications * [...] by mouth once daily Active nystatin (MYCOSTATIN) 100074 UNIT/GM cream APPLY TO AFFECTED AREA TWICE [...] on file Legal Sex Male 5:16 PM LINUX SYSTEMS ADMINISTRATOR Gender Identity Not on file Sexual Orientation [...] DEPRESSION SCREENING 10/18/2024 COVID-19 VACCINE (1 - 2024-2 6 season) 2025 INFLUENZA VACCINE (#1) 2025 ZOSTER [...] this topic Medical Devices Implanted Type Area Applications Chemist Device Identifier Shelf Expiration Date Model / Serial / Lot Occl Sept Cribifrm 18mm Implanted:Qty: 1 on 06/12/2019 by Javier Chan MD at [facility] [employer] 08/17/2023 [id number] Insurance AETNA ANTHEM AETNA AETNA AETNA AETNA AETNA AETNA AETNA Advance Directives * Full Code (Latest Code Status on File) Date Activated Date Inactivated Comments 06/12/2019 2:12 PM 06/14/2019 1:51 PM Care Teams Columnist Relationship Specialty Start Date End Date Bruno Mg MD [address] [place] [address] PCP - General 11/03/16
--- OUTSIDE RECORDS SUMMARY | 2025-10-08 17:28 | XMS_ITS | Clinical Summary ---
Author Organization [facility] Address [address] [place] [address] Care Team Providers Care Staff Climate Scientist Name Role Phone Unavailable Primary Care Provider [...]
--- OUTSIDE RECORDS SUMMARY | 2025-10-08 17:28 | XMS_ITS | Patient Health Record ---
Author Organization [facility] Address [address] [place] [address] Care Team Providers Care Social Studies Department Chair Name Role Phone Nereida Abel MD Primary Care Provider Unav ailable Sharmin Landon Unavailable [phone] Yoan Benítez Unavailable [phone] KadeemLia phipps Unavailable [phone] Allergies Allergen (clinical drug ingredient) Drug/Non Drug [...] Reason Axial Low Back Pain Referral Organization [facility] Referring Provider First Name Sharmin Referring Provider [...] W/U Status Risk Notes Problem Lumbar spondylosis (385121606) Lumbar spondylosis (M47.816) Active confirmed Problem Solitary sacroiliitis (943642758) Sacroiliitis, not elsewhere classified (M46.1) Active confirmed Problem Degeneration of lumbosacral intervertebral disc (86522484) Other intervertebral disc degeneration, lumbosacral region (M51.37) Active confirmed Problem Lumbosacral spondylosis without myelopathy (disorder) (64648427) Spondylosis without myelopathy or radiculopathy, lumbosacral region (M47.817) Active confirmed Problem Vertebrogenic low back pain (7741773403827582 01) Vertebrogenic low back pain (M54.51) Active confirmed Problem Lumbosacral spondylosis without myelopathy (27471212) Lumbar Spondylosis without Myelopathy (M47.816) Active confirmed Encounters Encounter Location Date Provider Diagnosis [facility]- [address] [address] 11/28/2024 Sharmin Landon Lumbar Spondylosis without Myelopathy M47.816 [facility] [address] [place] [address] 01/31/2025 Sharmin Landon Lumbar Spondylosis without Myelopathy M47.816 [facility]- [address] [address] 10/17/2024 Sharmin Landon Lumbar Spondylosis without Myelopathy M47.816 [facility]- [address] [address] 11/02/2024 Fitzgerald Ahmed Vertebrogenic low back pain M54.51 and Lumbar Spondylosis without Myelopathy M47.816 [facility]- [address] [address] 12/14/2024 Fitzgerald Ahmed Vertebrogenic low back pain M54.51 and Lumbar Spondylosis without Myelopathy M47.816 [facility]- [address] [address] 01/11/2025 Fitzgerald Ahmed Lumbar Spondylosis without Myelopathy M47.816 and Vertebrogenic low back pain M54.51 [facility] [address] [place] [address] 02/15/2025 Fitzgerald Ahmed Sacroiliitis, not elsewhere classified M46.1 and Lumbar Spondylosis without Myelopathy M47.816 [facility]-[address] [address] 04/03/2025 Sharminjez Hardyopher Sacroiliitis, not elsewhere classified M46.1 [facility] [address] 04/26/2025 Fitzgerald Ahmed Lumbar Spondylosis without Myelopathy M47.816 ; Low back pain, unspecified M54.50 and Sacroiliitis, not elsewhere classified M46.1 [facility] [address] 06/14/2025 Yoan Benítez LUMBAR SPINAL STENOSIS W/O CLAUDICATION M48.061 and Lumbar Spondylosis without Myelopathy M47.816 [facility]-[address] [address] 06/26/2025 Sharmin Landon Lumbar Spondylosis without Myelopathy M47.816 [facility] [address] [place] [address] Dr. Marino A [address] [place], [place] [phone] 01/12/2025 Sharmin Landon [facility] [address] [place] [address] 05/07/2025 Sharmin Landon Assessments Encounter Date Diagnosis (ICD Code) Assessment Notes Treatment Notes Treatment Clinical Notes Section Notes 11/28/2024 Lumbar Spondylosis without Myelopathy (ICD-10 - M47.816) 01/31/2025 Lumbar Spondylosis without Myelopathy (ICD-10 - M47.816) 10/17/2024 Lumbar Spondylosis without Myelopathy (ICD-10 - [...] unchanged from 04/26/25 except as denoted below. 06/26/2025 Lumbar Spondylosis without Myelopathy (ICD-10 - M47.816) 04/26/2025 Sacroiliitis, not elsewhere classified (ICD-10 - M46.1) Assessment is unchanged from 02/15/2025 except as denoted below. 11/02/2024 Other Notes: [...] and that the patient will need a tank truck driver on procedure day. The patient expresses [...] measures for his LBP, including: child care aide, PT, and medications. The pt has also [...] Date Coverage End Date [employer] [address] [place] [address] [id number] Javier Schneider Self - patient is the [...]
--- OUTSIDE RECORDS SUMMARY | 2025-10-08 17:28 | XMS_ITS | Clinical Summary ---
Author Organization [facility] Address [facility] [place] [address] Care Team Providers Care Sanitary Engineering Teacher Name Role Phone Nereida Abel MD Primary Care Provider + Lorenzo Lin WEB DESIGN SPECIALIST Unavailable Allergies Active Allergy Reactions Criticality Noted Date Comments Cephalexin Dizziness Low 09/12/2025 Clarithromycin Agitation Low 08/03/2025 Jittery Guaifenesin Agitation Low 08/03/2025 [place] Lisinopril Cough Low 08/23/2025 Phenylephrine Agitation Low 08/03/2025 Jittery Medications aspirin 325 mg tablet 2 Active [...] NEEDED 5 Active losartan (COZAAR) 25 mg tabletIndications :Essential hypertension Take 1 tablet (25 mg total) by mouth daily 90 tablet 3 5 08/23/20 26 Active Active Problems Problem Noted Date Diagnosed Date Personal history of transien t ischemic attack (TIA), and cerebral infarction without residual deficits 10/17/2024 S/P percutaneous patent foramen ovale closure Hyperlipidemia 03/27/2022 Other sequelae of other cerebrovascular disease 03/27/2022 Encounters Date Type Department Care Team Description 09/20/2025 Telephone [place] [address] [place] [phone] Javier Borrero MD pre-op clearance 09/17/2025 Results Follow-Up [place] [address] [place] [phone] Gail Fitzpatrick NP CTA Heart and Coronary Arteries W Morphology when Performed 09/12/2025 7:12 AM ART EDUCATION PROFESSOR - 09/12/2025 11:59 PM ART EDUCATION PROFESSOR Hospital Encounter [facility] [address] [place] [address] Dyspnea on exertion; Family history of ischemic heart disease Discharge Disposition: Discharge to home or self care 08/24/2025 Telephone [place] [address] [place] [phone] Javier Borrero MD 08/23/2025 10:00 AM ART EDUCATION PROFESSOR Office Visit [place] [address] [place] [phone] Gail Fitzpatrick NP Dyspnea on exertion (Primary Dx); Family history of ischemic heart disease; Essential hypertension; Preoperative cardiovascular examination; Hyperlipidemia, unspecified hyperlipidemia type 08/10/2025 Telephone [place] [address] [place] [phone] Javier Borrero MD 07/25/2025 Telephone [place] [address] [place] [phone] Javier Borrero MD Cough; Shortness of Breath; Med Management from Last 3 Months Surgical History Surgery [...] on file Legal Sex Male 9:34 AM ART EDUCATION PROFESSOR Gender Identity Not on file Sexual Orientation Not on file Last Filed Vital Signs Vital Sign Reading Time Taken Comments Blood Pressure 131/85 09/12/2025 7:58 AM ART EDUCATION PROFESSOR Pulse 59 09/12/2025 7:58 AM ART EDUCATION PROFESSOR Temperature - - Respiratory Rate - - Oxygen Saturation 97% 08/23/2025 10:10 AM ART EDUCATION PROFESSOR Inhaled Oxygen Concentration - - Weight 109.8 kg (242 lb) 08/23/2025 10:10 AM ART EDUCATION PROFESSOR Height 180.3 cm (5' 11) 08/23/2025 10:10 AM ART EDUCATION PROFESSOR Body Mass Index 33.75 08/23/2025 10:10 AM ART EDUCATION PROFESSOR Plan of Treatment Health Maintenance Due Date [...] Procedure Name Priority Date/Time Associated Diagnosis Comments CT HEART MORPHOLOGY AND CORONARY ARTERIES W CONTRAST Schedule Routine, Read Routine (OP Routine) 09/12/2025 8:26 AM ART EDUCATION PROFESSOR Dyspnea on exertion Family history of ischemic heart disease ELECTROCARDIOGRAM REPORT Routine 08/23/2025 1:21 PM ART EDUCATION PROFESSOR Dyspnea on exertion Family history of ischemic heart disease Essential hypertension Preoperative cardiovascular examination POCT LIPID PANEL Routine 08/23/2025 10:08 AM ART EDUCATION PROFESSOR Hyperlipidemia, unspecified hyperlipidemia type from Last 3 Months Results * CTA Heart and Coronary Arteries W Morphology when Performed (09/12/2025 8:26 AM ART EDUCATION PROFESSOR) Anatomical Region Laterality Modality Chest N/A Computed Tomogra phy 09/12/2025 10:0 4 AM ART EDUCATION PROFESSOR Impressions 09/12/2025 10:04 AM ART EDUCATION PROFESSOR Minimal calcified plaque within the proximal left anterior descending coronary artery and within the second obtuse marginal artery but no significant stenosis (no stenosis greater than 10%). Electronically signed by: Hitesh Donato M.D. Narrative 09/12/2025 10:04 AM ART EDUCATION PROFESSOR Examination: CT angiogram of the coronary arteries with and without intravenous contrast HISTORY: High risk for coronary atherosclerosis. TECHNIQUE: Standard CT angiogram of the coronary arteries was performed prior to and after the administration of 120 mL of Optiray 350 intravenous contrast. Images were sent to three-dimensional workstation for further evaluation. FINDINGS: No prior CT is available for comparison. The lungs are clear other than for some mild basilar atelectasis. There is no interstitial lung disease or consolidation. No pulmonary edema. The calcium score is calculated at 21 placing this patient at 75-90% risk for age. No pleural or pericardial effusion. A Amplatz occluder is seen within the atrial septum. The right coronary artery arises normally without any atherosclerosis seen. Patient is right dominant. The left main coronary artery arises normally and gives rise to the left anterior descending and circumflex coronary arteries within the left anterior descending coronary artery there is a mild calcified plaque with less than 10% stenosis. The remainder of the left into descending coronary artery is normal. The circumflex coronary artery gives rise immediately to obtuse marginal and into the second obtuse marginal. Within the second obtuse marginal there is some calcium with no stenosis greater than 5%. The bone windows are unremarkable. Procedure Note Hitesh Donato MD - 09/12/2025 Examination: CT angiogram of the coronary arteries with and without intravenous contrast HISTORY: High risk for coronary atherosclerosis. TECHNIQUE: Standard CT angiogram of the coronary arteries was performed prior to and after the administration of 120 mL of Optiray 350 intravenous contrast. Images were sent to three-dimensional workstation for further evaluation. FINDINGS: No prior CT is available for comparison. The lungs are clear other than for some mild basilar atelectasis. There is no interstitial lung disease or consolidation. No pulmonary edema. The calcium score is calculated at 21 placing this patient at 75-90% risk for age. No pleural or pericardial effusion. A Amplatz occluder is seen within the atrial septum. The right coronary artery arises normally without any atherosclerosis seen. Patient is right dominant. The left main coronary artery arises normally and gives rise to the left anterior descending and circumflex coronary arteries within the left anterior descending coronary artery there is a mild calcified plaque with less than 10% stenosis. The remainder of the left into descending coronary artery is normal. The circumflex coronary artery gives rise immediately to obtuse marginal and into the second obtuse marginal. Within the second obtuse marginal there is some calcium with no stenosis greater than 5%. The bone windows are unremarkable. IMPRESSION: Minimal calcified plaque within the proximal left anterior descending coronary artery and within the second obtuse marginal artery but no significant stenosis (no stenosis greater than 10%). Electronically signed by: Hitesh Donato M.D. Gail Fitzpatrick NP IMG CT PROCEDURES Final R esult * Electrocardiogram Report (08/23/2025 1:21 PM ART EDUCATION PROFESSOR) Gail Fitzpatrick NP ECG ORDERABLES Final Res ult * POCT lipid panel (08/23/2025 10:08 AM ART EDUCATION PROFESSOR) [facility] Cholesterol, POC 122 <200 MG/DL HDL, POC 42 >=40 mg/dL Triglycerides, POC 136 <=149 mg/dL LDL Cholesterol POC 52 <=129 mg/dL Chol/HDL Ratio, POC 1.2 NONE Non-HDL Cholesterol, POC 80 NONE mg/dL Cholesterol Total, POC 122 30 - 199 mg/dL Capillary blood 08/23/2025 1 0:08 AM ART EDUCATION PROFESSOR Gail Fitzpatrick NP POINT OF CARE TEST ORDERA BLES Final Result from Last 3 Months Insurance ANTHEM ACCESS AETNA [facility] HMO Care Teams Sanitary Engineering Teacher Relationship Specialty Start Date End Date Nereida Abel MD PCP - General Family Medicine 10/07/23 Lorenzo Lin NP [address] [place] [address] Nurse Practitioner 07/25/25
== END 2025-10-08 17:21 | disposition home or self-care (01) ==
PROVIDERS: PCP Nurse Practitioner Family; Visit Provider Neurological Surgery
DX: M47.816 Spondylosis without myelopathy or radiculopathy, lumbar region (principal)
CPT/HCPCS: 72110

== ENCOUNTER 2025-10-12 00:17 | Day surgery (SDC) | payer OTHER, SELFPAY ==
--- OUTSIDE RECORDS SUMMARY | 2025-01-12 06:42 | XMS_ITS ---
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 Name Role Phone Nereida Abel MD Primary Care Provider Unav Sharmin Hamilton Unavailable [phone] Allergies Allergen (clinical drug ingredient) Drug/Non Drug Allergy documented on EMR Reaction Allergy Type Onset Date Status cephalexin Cephalexin Dizziness Drug Allergy Activ e REASON FOR VISIT Pre-Procedure Phone Call Medications Medication SIG (Take, Route, Frequency, Duration) Notes Start Date End Date Status Tramadol 50 mg one tab orally every 4-6 hours prn pain Active Diclofenac Sodium 75 MG 1 tablet as needed Orally Twice a day as needed Not-Taking predniSONE 10 MG as directed Orally Once a day 11/02/2024 Active Atorvastatin Calcium 80 MG 1 tablet Orally Once a day Active Claritin 10 MG 1 tablet Orally Once a day for 30 day(s) Active Finasteride 5 MG 1 tablet Orally Once a day Not-Taking valACYclovir HCl 500 MG 1 tablet Orally Once a day Active Aspirin 325 mg 325 mg one tab orally daily Active Multivitamin - 1 tablet Orally Once a day for 30 day(s) Active Methocarbamol 750 MG 1 tablet Orally every 4-6 hours as needed for 30 days Active Medrol 4 MG as directed Orally 6 tabs day 1, 5 tabs day 2, 4 tabs day 3, 3 tabs day 4, 2 tabs day 5, 1 tab day 6 for 6 days To be taken after upcoming lumbar RFA if experiencing side effects from procedure. Discussed with patient. 01/11/2025 Active Encounters Encounter Location Date Provider Diagnosis [facility] [address] [place], [place] [id number] 01/12/2025 Sharmin Landon Plan Of Treatment No Information Progress Notes * Javier HENDRIXDOB:1979 (45 yo M)Acc No.[id number]:01/12/2025 Patient: Javier DELCID :1980 A ge:44 Y S ex:Male Address:[place] [address] Subjective: * Chief Complaints: * P re-Procedure Phone Call * Medical History: * Surgical History: L eft Knee Medial Meniscus Repair 2002Left Knee Medial Meniscus Repair 2004Patent Foramen Ovale Closure 2020Bladder Cystoscopy (Cyst (2) Removed) 2023Tonsillectomy childhood * Hospitalization/Major Diagno stic Procedure: * Medications: T akingMultivitamin - Tablet 1 tablet Orally Once a day Claritin 10 MG Tablet 1 tablet Orally Once a day valACYclovir HCl 500 MG Tablet 1 tablet Orally Once a day Aspirin 325 mg 325 mg tablet one tab orally daily Atorvastatin Calcium 80 MG Tablet 1 tablet Orally Once a day Tramadol 50 mg tablet one tab orally every 4-6 hours prn pain predniSONE 10 MG Tablet as directed Orally Once a day Methocarbamol 750 MG Tablet 1 tablet Orally every 4-6 hours as needed Medrol 4 MG Tablet Therapy Pack as directed Orally 6 tabs day 1, 5 tabs day 2, 4 tabs day 3, 3 tabs day 4, 2 tabs day 5, 1 tab day 6 , Notes to Pharmacist: To be taken after upcoming lumbar RFA if experiencing side effects from procedure. Discussed with patient.Taking Multivitamin - Tablet 1 tablet Orally Once a day Taking Claritin 10 MG Tablet 1 tablet Orally Once a day Taking valACYclovir HCl 500 MG Tablet 1 tablet Orally Once a day Taking Aspirin 325 mg 325 mg tablet one tab orally daily Taking Atorvastatin Calcium 80 MG Tablet 1 tablet Orally Once a day Taking Tramadol 50 mg tablet one tab orally every 4-6 hours prn pain Taking predniSONE 10 MG Tablet as directed Orally Once a day Taking Methocarbamol 750 MG Tablet 1 tablet Orally every 4-6 hours as needed Taking Medrol 4 MG Tablet Therapy Pack as directed Orally 6 tabs day 1, 5 tabs day 2, 4 tabs day 3, 3 tabs day 4, 2 tabs day 5, 1 tab day 6 , Notes to Pharmacist: To be taken after upcoming lumbar RFA if experiencing side effects from procedure. Discussed with patient.Not-Taking/PRNFinasteride 5 MG Tablet 1 tablet Orally Once a day Diclofenac Sodium 75 MG Tablet Delayed Release 1 tablet as needed Orally Twice a day as needed Not-Taking/PRN Finasteride 5 MG Tablet 1 tablet Orally Once a day Not-Taking/PRN Diclofenac Sodium 75 MG Tablet Delayed Release 1 tablet as needed Orally Twice a day as needed DiscontinuedBaclofen 10 MG Tablet 1 tablet as needed Orally Twice a day Baclofen 20 MG Tablet 1 tablet as needed Orally three times a day (tid) as needed (prn) Discontinued Baclofen 10 MG Tablet 1 tablet as needed Orally Twice a day Discontinued Baclofen 20 MG Tablet 1 tablet as needed Orally three times a day (tid) as needed (prn) * Allergies: C ephalexin: Dizzinessno[Allergies Verified] Objective: * Vitals: * Physical Examination: Assessment: Plan: * Treatment: * Procedure Codes: * * Date:
--- OUTSIDE RECORDS SUMMARY | 2025-01-31 03:45 | XMS_ITS ---
Author Organization [facility] Address [address] [place] [address] Care Team Providers Care Under Presser Name Role Phone Page BURT, Nereida Primary Care Provider Unav ailable Sharmin Landon Unavailable [phone] REASON FOR VISIT Right L3,L4,L5 RFA Encounters Encounter Location Date Provider Diagnosis [facility] [address] [place] [address] 01/31/2025 Sharmin Landon Lumbar Spondylosis without Myelopathy M47.816 Assessments Encounter Date Diagnosis (ICD Code) Assessment Notes Treatment Notes Treatment Clinical Notes Section Notes 01/31/2025 Lumbar Spondylosis without Myelopathy (ICD-10 - M47.816) Plan Of Treatment No Information Progress Notes * Javier HENDRIXDOB:1979 (45 yo M)Acc No.[id number]:01/31/2025 Patient: Javier DELCID Provider: Sergey Landon MD :1980 A ge:44 Y S ex:Male Date:01/31/2025 Address:[address] Pcp:Nereida Abel MD * * Electronic signature of Sharmin Landon MD on 10/12/2025 at 01:19 AM EST Sign off status: Pending * Provider: Sergey Landon MD Date: 0 01/31/2025 Generated for Printi ng/Faxing/eTransmitting on: 1 12/13/2024 01:19 AM EST
--- OUTSIDE RECORDS SUMMARY | 2025-03-29 05:30 | XMS_ITS ---
Author Organization [facility] Address [address] [place] [address] Care Team Providers Care Manager Technical Support Name Role Phone Nereida Abel MD Primary Care Provider Unav Sharmin Hamilton Unavailable [phone] Allergies Allergen (clinical drug ingredient) Drug/Non Drug [...] Active Encounters Encounter Location Date Provider Diagnosis [facility] [address] 03/29/2025 Sharmin Landon Plan Of Treatment No Information Progress Notes * Javier HENDRIXDOB:1979 (45 yo M)Acc No.[id number]:03/29/2025 Injection Patient: Javier DELCID Provider: Sergey Landon MD :1980 A ge:44 Y S ex:Male Date:03/29/2025 Address:[address] Pcp:Nereida Abel MD Subjective: * Chief Complaints: [...] 0 03/29/2025 Generated for Veena mooney/Alyssa/Neeta on: 12/13/2024 01:19 AM EST
--- OUTSIDE RECORDS SUMMARY | 2025-05-29 05:15 | XMS_ITS ---
Author Organization [facility] Address [address] [place] [address] Care Team Providers Care Fuse Spooler Name Role Phone Page BURT, Nereida Primary Care Provider Unav ailable Sharmin Landon Unavailable [phone] Allergies Allergen (clinical drug ingredient) Drug/Non Drug Allergy documented on EMR Reaction Allergy Type Onset Date Status cephalexin Cephalexin Dizziness Drug Allergy Activ e REASON FOR VISIT Right Lumbar Three Lumbar Four Lumbar Four Lumbar Five Facet Joint Injection Encounters Encounter Location Date Provider Diagnosis [facility]-[address] [address] 05/29/2025 Sharmin Landon Plan Of Treatment No Information Progress Notes * Javier HENDRIXDOB:1979 (45 yo M)Acc No.[id number]:05/29/2025 Injection Patient: Javier DELCID Provider: Sergey Landon MD :1980 A ge:44 Y S ex:Male Date:05/29/2025 Address:[address] Pcp:Nereida Abel MD Subjective: * Chief Complaints: * Medical History: S troke (Left Cerebellar-Poor balance residual), Sleep Apnea (no device), 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 * Allergies: C ephalexin: Dizziness. Objective: Assessment: Plan: * Treatment: * * Electronic signature of Sharmin Landon MD on 10/12/2025 at 01:20 AM EST Sign off status: Pending * Provider: Sergey Landon MD Date: 0 05/29/2025 Generated for Veena mooney/Alyssa/Neeta on: 1 12/13/2024 01:20 AM EST
--- OUTSIDE RECORDS SUMMARY | 2025-07-24 05:30 | XMS_ITS ---
Author Organization [facility] Address [address] [place] [address] Care Team Providers Care Radiology Technician Name Role Phone Page BURT, Nereida Primary Care Provider Unav ailable Sharmin Landon Unavailable [phone] Allergies Allergen (clinical drug ingredient) Drug/Non Drug Allergy documented on EMR Reaction Allergy Type Onset Date Status cephalexin Cephalexin Dizziness Drug Allergy Activ e REASON FOR VISIT Bilateral Lumbar Two Lumbar Three Epidural Steroid Injection Encounters Encounter Location Date Provider Diagnosis [facility]-[address] [address] 07/24/2025 Sharmin Landon Plan Of Treatment No Information Progress Notes * Javier HENDRIXDOB:1979 (45 yo M)Acc No.[id number]:07/24/2025 Injection Patient: Javier DELCID Provider: Sergey Landon MD :1980 A ge:45 Y S ex:Male Date:07/24/2025 Address: [address] [place], [place] [id number] Pcp:Nereida Abel MD Subjective: * Chief Complaints: [...] Pending * Provider: Sergey Landon MD Date: 1 Generated for Veena mooney/Alyssa/Neeta on: 1 12/13/2024 01:20 AM EST
[2025-08-22 09:49] VITALS: BMI 31.4
--- NOTE | 2025-08-22 09:51 | PC.NURSE ---
Addendum entered by Jermaine Bruce RN 10/05/25 12:17: Says no changes since preop interview. Says will be finished with antibiotic in a few days. Informed patient to be here at 0630 for surgery at 0830 on 10-12-2025. Reviewed again instructions below. Original Note: [facility] has started construction of its new state of the art ER which will open Spring 2026. With this, we anticipate parking may be a challenge for some our surgical patients and families. Parking spaces are limited but are available for all Surgical, obstetrics, and ER patients sharing this lot. If you arrive and find you are having a hard time finding a parking space, please note that we understand the challenges, please drive around the hospital and park near Hospital Entrance 1. When you enter this entrance, you can ask a volunteer to direct or take you back to the surgical waiting area to check in. We appreciate everyone?s understanding of these expected challenges while we build for your future. Report to the Outpatient Waiting Room, entrance under the green pavilion located off [address], at time _1000_ on date _[phone]_. Planned Procedure Time: _1200_.? Time changes happen often and if your time is changed the preop area will call you the afternoon before. - You and your visitor will be asked to self-screen and do not enter if you have any COVID symptoms. Please call surgeon if you need to reschedule. - A mask is optional within the hospital at this time. Patients may have clear liquids (water, carbonated beverages, clear teas, apple juice) until 3 hours prior to surgery with a maximum of 20 ounces. - No food from midnight until time of surgery and no smoking, or chewing tobacco (or any form of nicotine). No chewing gum, candy or mints. Take only the following medications with a SIP of water on the morning of surgery: __Hydrocodone if needed.___ DO NOT STOP ANY OF YOUR OTHER PRESCRIPTION MEDICATIONS PRIOR TO SURGERY EXCEPT THE FOLLOWING Hold all vitamins and supplements for 3 days per anesthesiologist. Medications to discontinue per physician Patient says he's going to just not take aspirin. Date to take last dose Please no make-up, nail irish, hairspray, perfume, deodorant, or body powder the day of surgery.? No jewelry (including any body piercings) or valuables the day of surgery, leave them at home.? Please take a shower or bath the night before, or the morning of, surgery with an antibacterial soap.? Wear comfortable, loose fitting clothing.? - Jewelry must be removed prior to entering the operating room.? Rings and piercings that are not removed may be cut off. - The hospital will not accept responsibility for valuables.? - Please leave all valuables, including medications, at home the day of surgery. If you are going home after surgery, a licensed m48/m60 tank driver must drive you home.? - NO public transportation without another adult if you receive anesthesia. - We recommend that an adult stay with you for 24 hours following discharge. - We also recommend that you do not drive, make important decision, drink alcoholic beverages, or take any drugs that were not prescribed by your health care provider for at least 24 hours after your discharge time. Follow any additional instructions given to you from your surgeon. Telephone instructions given to ___Michael__and asked if any additional questions and then verbalized understanding. Patient advised to call surgeon office or pre surgery nurse liaison [phone] if any additional questions.
--- OUTSIDE RECORDS SUMMARY | 2025-08-28 00:36 | XMS_ITS | Clinical Summary ---
Author Organization [facility] Address [address] [place] [address] Care Team Providers Care Public Relations Writer Name Role Phone Nereida Abel MD Primary Care Provider + Lorenzo Lin MARBLEIZING MACHINE TENDER Unavailable Allergies Active Allergy Reactions Criticality Noted [...] Encounters Date Type Department Care Team Description 08/24/2025 Telephone [facility] Cardiology [address] [place] [address] [place] [phone] Javier Borrero MD 08/23/2025 10:00 AM FOREST FIRE SPECIALIST SUPERVISOR Office Visit [place] [address] [place] [phone] Gail Fitzpatrick NP Dyspnea on exertion (Primary Dx); Family history of ischemic heart disease; Essential hypertension; Preoperative cardiovascular examination; Hyperlipidemia, unspecified hyperlipidemia type 08/10/2025 Telephone [place] [address] [place] [phone] Javier Borrero MD 07/25/2025 Telephone [place] [address] [place] [phone] Javier Borrero MD Cough; Shortness of Breath; Med Management 07/05/2025 Telephone [place] [address] [place] [phone] Barrett Jerez MD 06/11/2025 Telephone [place] [address] [place] [phone] Gail Fitzpatrick NP Lab Results; BP readings 06/11/2025 Results Follow-Up [place] [address] [place] [phone] Gail Fitzpatrick NP Basic metabolic panel from Last 3 Months Surgical History Surgery [...] on file Legal Sex Male 9:34 AM FOREST FIRE SPECIALIST SUPERVISOR Gender Identity Not on file Sexual Orientation Not on file Last Filed Vital Signs Vital Sign Reading Time Taken Comments Blood Pressure 124/72 08/23/2025 10:10 AM FOREST FIRE SPECIALIST SUPERVISOR Pulse 76 08/23/2025 10:10 AM FOREST FIRE SPECIALIST SUPERVISOR Temperature - - Respiratory Rate - - Oxygen Saturation 97% 08/23/2025 10:10 AM FOREST FIRE SPECIALIST SUPERVISOR Inhaled Oxygen Concentration - - Weight 109.8 kg (242 lb) 08/23/2025 10:10 AM FOREST FIRE SPECIALIST SUPERVISOR Height 180.3 cm (5' 11) 08/23/2025 10:10 AM FOREST FIRE SPECIALIST SUPERVISOR Body Mass Index 33.75 08/23/2025 10:10 AM FOREST FIRE SPECIALIST SUPERVISOR Plan of Treatment Health Maintenance Due Date [...] Comments ELECTROCARDIOGRAM REPORT Routine 025 1:21 PM FOREST FIRE SPECIALIST SUPERVISOR Dyspnea on exertion Family history of ischemic heart disease Essential hypertension Preoperative cardiovascular examination POCT LIPID PANEL Routine 08/23/2025 10:0 8 AM FOREST FIRE SPECIALIST SUPERVISOR Hyperlipidemia, unspecified hyperlipidemia type BASIC METABOLIC PANEL Routine 06/08/2025 10:52 AM CDT Dyspnea on exertion from Last 3 Months Results * Electrocardiogram Report (08/23/2025 1:21 PM FOREST FIRE SPECIALIST SUPERVISOR) Gail Fitzpatrick NP ECG ORDERABLES Final Res ult * POCT lipid panel (08/23/2025 10:08 AM FOREST FIRE SPECIALIST SUPERVISOR) Cholesterol, POC 122 <200 MG/DL HDL, POC 42 >=40 mg/dL Triglycerides, POC 136 <=149 mg/dL LDL Cholesterol POC 52 <=129 mg/dL Chol/HDL Ratio, POC 1.2 NONE Non-HDL Cholesterol, POC 80 NONE mg/dL Cholesterol Total, POC 122 30 - 199 mg/dL Capillary blood 08/23/2025 1 0:08 AM FOREST FIRE SPECIALIST SUPERVISOR Gail Fitzpatrick MARBLEIZING MACHINE TENDER POINT OF CARE TEST ORDERA BLES Final [...] 2 AM CDT 06/08/2025 10:52 AM CDT aGil Fitzpatrick MARBLEIZING MACHINE TENDER LAB BLOOD ORDERABLES Wanda l Result [facility] [id number] [address] [phone] from Last 3 Months Insurance [facility] Care Teams Public Relations Writer Relationship Specialty Start Date End Date Nereida Abel MD PCP - General Family Medicine 10/07/23 Lorenzo Lin NP [address] [place] [address] Nurse Practitioner 07/25/25
--- OUTSIDE RECORDS SUMMARY | 2025-08-28 00:36 | XMS_ITS | Encounter Summary ---
Author Organization [facility] Address [address] [place] [address] Care Team Providers Care Dental Technician Instructor Name Role Phone Nereida Abel MD Primary Care Provider + Lorenzo Lin LABORATORY INSPECTOR Unavailable Encounter Details Date Type Department Care Team (Late st Contact Info) Description 08/24/2025 Telephone [facility] Cardiology [address] [place] [address] Javier Borrero MD [address] [facility] [address] [place] [address] Social History Tobacco Use Types Packs/Day Years Used Date Smoking Tobacco: Never Smokeless Tobacco: Former Chew Quit: 11/20/2010 Sex and Gender Information Value Date Recorded Sex Assigned at Not on file Legal Sex Male 9:34 AM BATCH DUMPER Gender Identity Not on file Sexual Orientation Not on file documented as of this encounter Miscellaneous Notes * Telephone Encounter - Steffi Rosenthal RN - 08/27/2025 2:27 PM BATCH DUMPER Spoke with pt, reviewed response below from CT. Letter sent via [employer] to pt. Pt also needs paperwork completed through his job and will have it faxed to our office or send through [employer] to complete. Pt is advised that CT is out of the office until 08/30 and it will not be signed until she returns. Pt verbalizes understanding. H DUMPER * Telephone Encounter - Gail Fitzpatrick NP - 08/27/2025 2:16 PM BATCH DUMPER Due to complaint of exertional chest pressure and dyspnea, I will excuse him from work until I get the results of the coronary CTA and review them. I am not back in the office to give a signature until 08/30/25. Thank you. H DUMPER * Telephone Encounter - July Barraza - 08/27/2025 2:12 PM CST Patient called in and states he needs to let work now if he can work or not. Requesting a call backto discuss. Thank you. Contact : [phone] H DUMPER * Telephone Encounter - Steffi Rosenthal RN - 08/27/2025 12:09 PM BATCH DUMPER Spoke with pt, pt states that after going up 3 flights of stairs at work he feels winded. Pt reports he had CT of his lungs and it came back clear. Pts sinus surgery that was scheduled for tomorrow was cancelled by anesthesia until cardiac testing is complete. Pt is moving his cardiac ct scan to 8am on 09/12. Pt does report some intermittent chest pressure, not induced by activity. He is wondering if he should be continuing to work with these ongoing symptoms. Will forward to CT. Please advise. H DUMPER * Telephone Encounter - July Barraza - 08/27/2025 10:47 AM CST Patient states at work he has to go up 100 ft in the air, 3 flights of stairs, and a 20 ft ladder. When he does these types of things, he gets winded. He is requesting a call back to discuss whether this would be safe for him to continue doing until he has his CTA scan on 09/25. He states that if heneeds to be off work until then he can bring a slip up to the office to get it filled out. Please advise. Thank you. Contact : [phone] H DUMPER * Telephone Encounter - Steffi Rosenthal RN - 08/24/2025 1:07 PM BATCH DUMPER Spoke with pt, reviewed response below from CT. Pt verbalizes understanding. H DUMPER * Telephone Encounter - Gail Fitzpatrick NP - 08/24/2025 11:17 AM BATCH DUMPER I do not think he has to delay his sinus surgery. He may proceed as scheduled next week, and have the coronary CTA whenever it is scheduled. Thank you. H DUMPER * Telephone Encounter - Steffi Rosenthal RN - 08/24/2025 8:20 AM BATCH DUMPER Will forward to CT. Please advise. H DUMPER * Telephone Encounter - July Barraza - 08/24/2025 8:10 AM CST Patient called in and states that his CT scan for his lungs came back clear. He is requesting a call back to discuss if he should wait to have his sinus surgery (scheduled for 08/28) until he gets the CT scan w/ contrast done of his heart. Please advise. Thank you. Contact : [phone] H DUMPER documented in this encounter Plan of Treatment Not on file documented as of this encounter Visit Diagnoses Not on filedocumented in this encounter Care Teams Dental Technician Instructor Relationship Specialty Start Date End Date Nereida Abel MD PCP - General Family Medicine 10/07/23 Lorenzo Lin NP [address] [place] [address] Nurse Practitioner 07/25/25 documented as of this encounter
--- OUTSIDE RECORDS SUMMARY | 2025-08-28 00:36 | XMS_ITS | Clinical Summary ---
Author Organization [facility] Address [address] [place] [address] Care Team Providers Care [place] Alderman Name Role Phone Unavailable Primary Care Provider [...]
--- OUTSIDE RECORDS SUMMARY | 2025-08-28 00:36 | XMS_ITS | Clinical Summary ---
Author Organization [facility] Address [address] [facility] [place] [address] Care Team Providers Care First Aid Nurse Name Role Phone Bruno Mg MD Primary Care Provider [phone] Source Comments [facility],non-owned Affiliates and Associated Physician Practices is amultiple site organization consisting of ambulatory clinics and hospital sitesin [place], [place], [place] and [place]. This disclosure is being madepursuant to the Care Everywhere program and may not contain all information available regarding this patient. Last updated 18.[facility] Allergies No known active allergies Medications * [...] by mouth once daily Active nystatin (MYCOSTATIN) 619334 UNIT/GM cream APPLY TO AFFECTED AREA TWICE [...] on file Legal Sex Male 5:16 PM TIRE LAYER Gender Identity Not on file Sexual Orientation [...] this topic Medical Devices Implanted Type Area Technology Sales Specialist Device Identifier Shelf Expiration Date Model / Serial / Lot Occl Sept Cribifrm 18mm Implanted:Qty: 1 on 06/12/2019 by Javier Chan MD at [facility] [employer] 08/17/2023 [id number] Insurance AETNA ANTHEM AETNA AETNA AETNA AETNA AETNA AETNA AETNA [facility] Address: [facility] [id number] [place] [phone] Advance Directives * Full Code (Latest Code Status on File) Date Activated Date Inactivated Comments 06/12/2019 2:12 PM 06/14/2019 1:51 PM Care Teams First Aid Nurse Relationship Specialty Start Date End Date Bruno Mg MD [address] [place] [address] PCP - General 11/03/16
[2025-10-12] VITALS (11 sets, daily range): BP systolic 136–159; BP diastolic 80–95; PULSE 69–100; RESP 12–20; TEMP 36.5–38.1; O2SAT 92–99; BMI 33.1
--- OUTSIDE RECORDS SUMMARY | 2025-10-12 00:20 | XMS_ITS | Clinical Summary ---
Author Organization [facility] Address [address] [place] [address] Care Team Providers Care Software Systems Architect Name Role Phone Unavailable Primary Care Provider [...]
--- OUTSIDE RECORDS SUMMARY | 2025-10-12 00:20 | XMS_ITS | Clinical Summary ---
Author Organization [facility] Address [address] [place] [address] Care Team Providers Care Mothercraft Nurse Name Role Phone Bruno Mg MD Primary Care Provider [phone] Source Comments [facility],non-owned Affiliates and Associated Physician Practices is amultiple site organization consisting of ambulatory clinics and hospital sitesin [place], [place], [place] and [place]. This disclosure is being madepursuant to the Care Everywhere program and may not contain all information available regarding this patient. Last updated 18.[facility] Allergies No known active allergies Medications * [...] by mouth once daily Active nystatin (MYCOSTATIN) 252264 UNIT/GM cream APPLY TO AFFECTED AREA TWICE [...] on file Legal Sex Male 5:16 PM SKI TOW OPERATOR Gender Identity Not on file Sexual [...] this topic Medical Devices Implanted Type Area Dry Wall Sprayer Device Identifier Shelf Expiration Date Model / Serial / Lot Occl Sept Cribifrm 18mm Implanted:Qty: 1 on 06/12/2019 by Javier Chan MD at [facility] [employer] 08/17/2023 [id number] Insurance AETNA ANTHEM AETNA AETNA AETNA AETNA AETNA AETNA AETNA Advance Directives * Full Code (Latest Code Status on File) Date Activated Date Inactivated Comments 06/12/2019 2:12 PM 06/14/2019 1:51 PM Care Teams Mothercraft Nurse Relationship Specialty Start Date End Date Bruno Mg MD [address] [place] [address] PCP - General 11/03/16
--- OUTSIDE RECORDS SUMMARY | 2025-10-12 00:20 | XMS_ITS | Patient Health Record ---
Author Organization [facility] Address [address] [place] [address] Care Team Providers Care Capsule Inspector Name Role Phone Nereida Abel MD Primary Care Provider Unav ailable Sharmin Landon Unavailable [phone] Yoan Benítez Unavailable [phone] KadeemLia phipps Unavailable [phone] Allergies Allergen (clinical drug ingredient) Drug/Non Drug [...] Reason Axial Low Back Pain Referral Organization [facility] Referring Provider First Name Sharmin Referring [...] W/U Status Risk Notes Problem Lumbar spondylosis (149377179) Lumbar spondylosis (M47.816) Active confirmed Problem Solitary sacroiliitis (650827680) Sacroiliitis, not elsewhere classified (M46.1) Active confirmed Problem Degeneration of lumbosacral intervertebral disc (43279899) Other intervertebral disc degeneration, lumbosacral region (M51.37) Active confirmed Problem Lumbosacral spondylosis without myelopathy (disorder) (12653297) Spondylosis without myelopathy or radiculopathy, lumbosacral region (M47.817) Active confirmed Problem Vertebrogenic low back pain (9167732762889884 01) Vertebrogenic low back pain (M54.51) Active confirmed Problem Lumbosacral spondylosis without myelopathy (73471375) Lumbar Spondylosis without Myelopathy (M47.816) Active confirmed Encounters Encounter Location Date Provider Diagnosis [facility]- [address] [address] 11/28/2024 Sharmin Landon Lumbar Spondylosis without Myelopathy M47.816 [facility] [address] [place] [address] 01/31/2025 Sharmin Landon Lumbar Spondylosis without Myelopathy M47.816 [facility]- [address] [address] 10/17/2024 Sharmin Landon Lumbar Spondylosis without Myelopathy M47.816 [facility]- [address] [address] 11/02/2024 Fitzgerald Ahmed Vertebrogenic low back pain M54.51 and Lumbar Spondylosis without Myelopathy M47.816 [facility]- [address] [address] 12/14/2024 Fitzgerald Ahmed Vertebrogenic low back pain M54.51 and Lumbar Spondylosis without Myelopathy M47.816 [facility]- [address] [address] 01/11/2025 Fitzgerald Ahmed Lumbar Spondylosis without Myelopathy M47.816 and Vertebrogenic low back pain M54.51 [facility] [address] [place] [address] 02/15/2025 Fitzgerald Ahmed Sacroiliitis, not elsewhere classified M46.1 and Lumbar Spondylosis without Myelopathy M47.816 [facility]-[address] [address] 04/03/2025 Sharminjez Hardyopher Sacroiliitis, not elsewhere classified M46.1 [facility] [address] 04/26/2025 Fitzgerald Ahmed Lumbar Spondylosis without Myelopathy M47.816 ; Low back pain, unspecified M54.50 and Sacroiliitis, not elsewhere classified M46.1 [facility] [address] 06/14/2025 Yoan Benítez LUMBAR SPINAL STENOSIS W/O CLAUDICATION M48.061 and Lumbar Spondylosis without Myelopathy M47.816 [facility] [address] 06/26/2025 Sharmin Landon Lumbar Spondylosis without Myelopathy M47.816 [facility] [address] [place] [address] Dr. Marino A [address] [place], [place] [phone] 01/12/2025 Sharmin Landon [facility] [address] [place] [address] 05/07/2025 Sharmin Landon Assessments Encounter Date Diagnosis [...] and that the patient will need a bus driver school on procedure day. The patient expresses understanding, [...] tried conservative measures for his LBP, including: healthcare economics manager, PT, and medications. The pt has also tried multiple spinal injections and an RFA without significant relief of his pain. Due to this, will schedule the patient for a bilateral L2/3 LPOEZ to target pain and symptoms stemming from [...] Date Coverage End Date [employer] [address] [place] [address] [id number] [phone] Javier Schneider Self - patient is the [...]
--- OUTSIDE RECORDS SUMMARY | 2025-10-12 00:21 | XMS_ITS | Clinical Summary ---
Author Organization [facility] Address Formerly [facility] [place] [address] Care Team Providers Care Director Cpg Name Role Phone Nereida Abel MD Primary Care Provider + Lorenzo Lin AUTOMATED MANU[employer]URING [employer]STRUCTOR Unavailable Allergies Active Allergy Reactions Criticality Noted [...] Type Department Care Team Description 09/20/2025 Telephone [place] [address] [place] [phone] Javier Borrero MD pre-op clearance 09/17/2025 Results Follow-Up [place] [address] [place] [phone] Gail Fitzpatrick NP CTA Heart and Coronary Arteries W Morphology when Performed 09/12/2025 7:12 AM DIRECTOR DENTAL SERVICES - 09/12/2025 11:59 PM DIRECTOR DENTAL SERVICES Hospital Encounter [facility] [address] [place] [phone] Dyspnea on exertion; Family history of ischemic heart disease Discharge Disposition: Discharge to home or self care 08/24/2025 Telephone [place] [address] [place] [phone] Javier Borrero MD 08/23/2025 10:00 AM DIRECTOR DENTAL SERVICES Office Visit [place] [address] [place] [phone] Gail Fitzpatrick NP Dyspnea on exertion (Primary Dx); Family history of ischemic heart disease; Essential hypertension; Preoperative cardiovascular examination; Hyperlipidemia, unspecified hyperlipidemia type 08/10/2025 Telephone [place] [address] [place] [phone] Javier Borrero MD 07/25/2025 Telephone [place] [address] [place] [phone] Javier Borrero MD Cough; Shortness of Breath; [...] on file Legal Sex Male 9:34 AM DIRECTOR DENTAL SERVICES Gender Identity Not on file Sexual Orientation Not on file Last Filed Vital Signs Vital Sign Reading Time Taken Comments Blood Pressure 131/85 09/12/2025 7:58 AM DIRECTOR DENTAL SERVICES Pulse 59 09/12/2025 7:58 AM DIRECTOR DENTAL SERVICES Temperature - - Respiratory Rate - - Oxygen Saturation 97% 08/23/2025 10:10 AM DIRECTOR DENTAL SERVICES Inhaled Oxygen Concentration - - Weight 109.8 kg (242 lb) 08/23/2025 10:10 AM DIRECTOR DENTAL SERVICES Height 180.3 cm (5' 11) 08/23/2025 10:10 AM DIRECTOR DENTAL SERVICES Body Mass Index 33.75 08/23/2025 10:10 AM DIRECTOR DENTAL SERVICES Plan of Treatment Health Maintenance Due Date [...] Read Routine (OP Routine) 09/12/2025 8:26 AM DIRECTOR DENTAL SERVICES Dyspnea on exertion Family history of ischemic heart disease ELECTROCARDIOGRAM REPORT Routine 08/23/2025 1:21 PM DIRECTOR DENTAL SERVICES Dyspnea on exertion Family history of ischemic heart disease Essential hypertension Preoperative cardiovascular examination POCT LIPID PANEL Routine 08/23/2025 10:08 AM DIRECTOR DENTAL SERVICES Hyperlipidemia, unspecified hyperlipidemia type from Last 3 Months Results * CTA Heart and Coronary Arteries W Morphology when Performed (09/12/2025 8:26 AM DIRECTOR DENTAL SERVICES) Anatomical Region Laterality Modality Chest N/A Computed Tomogra phy 09/12/2025 10:0 4 AM DIRECTOR DENTAL SERVICES Impressions 09/12/2025 10:04 AM DIRECTOR DENTAL SERVICES Minimal calcified plaque within the proximal left anterior descending coronary artery and within the second obtuse marginal artery but no significant stenosis (no stenosis greater than 10%). Electronically signed by: Hitesh Donato M.D. Narrative 09/12/2025 10:04 AM DIRECTOR DENTAL SERVICES Examination: CT angiogram of the coronary arteries [...] esult * Electrocardiogram Report (08/23/2025 1:21 PM DIRECTOR DENTAL SERVICES) Gail Fitzpatrick NP ECG ORDERABLES Final Res ult * POCT lipid panel (08/23/2025 10:08 AM DIRECTOR DENTAL SERVICES) [facility] Cholesterol, POC 122 <200 MG/DL HDL, POC 42 >=40 mg/dL Triglycerides, POC 136 <=149 mg/dL LDL Cholesterol POC 52 <=129 mg/dL Chol/HDL Ratio, POC 1.2 NONE Non-HDL Cholesterol, POC 80 NONE mg/dL Cholesterol Total, POC 122 30 - 199 mg/dL Capillary blood 08/23/2025 1 0:08 AM DIRECTOR DENTAL SERVICES Gail Fitzpatrick NP POINT OF CARE TEST ORDERA BLES Final Result from Last 3 Months Insurance [employer] [facility] H[employer] Care Teams Director Cpg Relationship Specialty Start Date End Date Nereida Abel MD PCP - General Family Medicine 10/07/23 Lorenzo Lin NP [address] [place] [address] Nurse Practitioner 07/25/25
[2025-10-12] MEDS: ACETAMINOPHEN 500 MG TABLET 1000 MG PO (07:19)
--- NOTE | 2025-10-12 08:32 | PM.HPGS ---
History of Present Illness History of Present Illness Consent: Risks, benefits, and alternatives have been discussed and questions answered. Patient agrees to proceed with procedure. Chief complaint: chronic sinusitis Narrative: Javier Schneider is a 45 year old male w/ a Hx of chronic sinusitis that has been refractory to medical management. He had a sinus CT showing significant sinus disease. Sinus surgery was offered to the patient and he presents for this today. Review of Systems Review of Systems: All systems reviewed & are unremarkable except as noted in HPI and below PMFSH Past Medical History Medical History (Reviewed 09/20/25 @ 15:20 by Jewell Cardona [facility]) Chronic sinusitis GABBI (obstructive sleep apnea) does not use CPAP CVA (cerebral vascular accident) Mixed hyperlipidemia BMI 32.0-32.9,adult Surgical History Surgical History S/P patent foramen ovale closure 05/29/19 H/O knee surgery LEFT KNEE MENISCUS Family History Family History Father Hypertension Lung cancer Grandparent Family history of malignant neoplasm Mother Hypertension Sibling Acute myocardial infarction Hypertension Other Diabetes mellitus Family history of coronary artery disease Social History Social History Smoking status: Never smoker Smokeless tobacco user: chewing tobacco Second hand tobacco smoke exposure: No Smoking end date: 11/20/10 Additional smoking assessment comments: Quit 2010 Alcohol intake: current Alcohol use details: occasionally Substance use: never Substance use type: does not use Lack of Transportation: No Lack of Food: Never True Current Housing: I Have Housing Concerned About Future Housing: No Difficulty Paying Gas/Electric Bills: No Difficulty Paying for Meds: No Currently Unemployed: No Education: Trade/Vocational Certificate Difficulty w/ Childcare or Family Care: No Living arrangements: with family Occupation/Education: occupation Additional occupation/education comments: [employer] Gender identity (if verbalized by the patient): Male Spiritual care concerns: No Meds Home Medications and Allergies Home Medications ?Medication ?Instructions ?Recorded ?Confirmed ?Type aspirin 325 mg tablet 325 mg PO DAILY #90 tabs 11/22/23 10/12/25 Rx loratadine 10 mg tablet (Claritin) 10 mg PO DAILY 06/29/24 10/12/25 History valacyclovir 500 mg tablet See Rx Instructions .Route 07/12/25 10/12/25 Rx .COMPLEX #90 tabs hydrocodone 5 mg-acetaminophen 325 1 tablet PO Q6-8H PRN pain 07/20/25 08/22/25 History mg tablet losartan 25 mg tablet 25 mg PO DAILY 09/20/25 10/12/25 History atorvastatin 80 mg tablet 80 mg PO DAILY #90 tabs 10/08/25 10/12/25 Rx Allergies Allergy/AdvReac Type Severity Reaction Status Date / Time clarithromycin AdvReac Unknown Jittery Verified 10/12/25 07:38 guaifenesin AdvReac Unknown Jittery Verified 10/12/25 07:38 phenylephrine AdvReac Unknown Jittery Verified 10/12/25 07:38 Vital Signs Vital Signs - 24 hr 10/12/25 06:45 Temperature 36.5 C Pulse Rate 69 Respiratory Rate 16 Blood Pressure 146/87 H Pulse Oximetry 98 Oxygen Delivery Room Air Exam Narrative: General: Well developed, well nourished. No apparent distress. Voice strong. Head: Normocephalic, atraumatic. Eyes: Sclerae and conjunctivae clear. Pupils equal and round. Full extraocular motility. Ears: Normal pinnae. Nose: Nasal dorsum is straight. No drainage or crusting at nares. Oral Cavity / Oropharynx: Moist mucous membranes. No suspicious lesions. Posterior pharynx is clear without drainage. Neck: Supple, nontender. No palpable lymphadenopathy, neck mass, or thyromegaly. Lungs: Respirations unlabored. Cardiovascular: Extremities warm and well perfused. Neurologic: Alert, oriented. Moves all extremities. Facial sensation intact to light touch. Face symmetric. Palate elevates symmetrically. Tongue midline. Assessment and Plan Assessment and plan (1) Chronic sinusitis: Qualifiers: Sinusitis location: unspecified location Qualified Code(s): J32.9 - Chronic sinusitis, unspecified Code(s): J32.9 - Chronic sinusitis, unspecified Status: Acute Plan OR today for endoscopic septoplasty, bilateral inferior turbinate reduction, and endoscopic sinus surgery. The risks, benefits, and alternatives to surgery were discussed. The risks of pain, bleeding, infection, scarring, no improvement in symptoms, worsening symptoms, recurrent symptoms, septal hematoma, septal perforation, numbness of upper teeth and palate, saddle nose deformity, empty nose syndrome, loss of taste and/or smell, injury to the nasolacrimal duct, injury to the orbit, vision loss, double vision, injury to the skull base, CSF leak, meningitis, stroke, and were all reviewed. The patient expressed understanding and wishes to proceed with surgery.
--- NOTE | 2025-10-12 08:35 | WPDHPUPDATE1 ---
History and Physical Update Update Date/Time: 10/12/25 08:35 History and Physical has been reviewed, including an updated exam of the patient. There are NO changes in the patient's condition. Risks, benefits, and alternatives have been discussed and questions answered. Patient agrees to proceed with procedure.
--- NOTE | 2025-10-12 08:43 | WPDANESEPPF ---
Anes - Initial Pre Proc Eval Procedure: Operation Date: 10/12/25 08:30 Proposed Procedures p Image Guided Endoscopic Assisted Bilateral Maxillary Antrostomy with Tissue Removal, Bilateral Total Ethmoidectomy, Bilateral Frontal Sinusotomy with Tissue Removal, - Nicanor Sauer MD s Septoplasty, Bilateral Inferior Turbinate Reduction with Outfracture - Nicanor Sauer MD Date/Time: 10/12/25 08:43 Surgeon: Nicanor Sauer MD Pre Op Diagnosis: chronic sinusitis Patient Data Age: 45 Gender: M Height: 1.8 m Weight: 107.7 kg Last Vital Signs Temp 97.7 F 10/12/25 06:45 Pulse 69 10/12/25 06:45 Resp 16 10/12/25 06:45 BP 146/87 H 10/12/25 06:45 Pulse Ox 98 10/12/25 06:45 O2 Del Method Room Air 10/12/25 06:45 Allergies Allergy/AdvReac Type Severity Reaction Status Date / Time clarithromycin AdvReac Unknown Jittery Verified 10/12/25 07:38 guaifenesin AdvReac Unknown Jittery Verified 10/12/25 07:38 phenylephrine AdvReac Unknown Jittery Verified 10/12/25 07:38 Home Medications ?Medication ?Instructions ?Recorded ?Confirmed ?Type aspirin 325 mg tablet 325 mg PO DAILY #90 tabs 11/22/23 10/12/25 Rx loratadine 10 mg tablet (Claritin) 10 mg PO DAILY 06/29/24 10/12/25 History valacyclovir 500 mg tablet See Rx Instructions .Route 07/12/25 10/12/25 Rx .COMPLEX #90 tabs hydrocodone 5 mg-acetaminophen 325 1 tablet PO Q6-8H PRN pain 07/20/25 08/22/25 History mg tablet losartan 25 mg tablet 25 mg PO DAILY 09/20/25 10/12/25 History atorvastatin 80 mg tablet 80 mg PO DAILY #90 tabs 10/08/25 10/12/25 Rx Patient hx anesthesia problems: none Family hx anesthesia problems: none Results Review: All pre-operative results and documents have been reviewed as part of the pre-operative evaluation. [facility] Past Medical History Medical History Chronic sinusitis GABBI (obstructive sleep apnea) does not use CPAP CVA (cerebral vascular accident) Mixed hyperlipidemia BMI 32.0-32.9,adult Surgical History Surgical History S/P patent foramen ovale closure 05/29/19 H/O knee surgery LEFT KNEE MENISCUS Family History Family History Father Hypertension Lung cancer Grandparent Family history of malignant neoplasm Mother Hypertension Sibling Acute myocardial infarction Hypertension Other Diabetes mellitus Family history of coronary artery disease Social History Social History Smoking status: Never smoker Smokeless tobacco user: chewing tobacco Second hand tobacco smoke exposure: No Smoking end date: 11/20/10 Additional smoking assessment comments: Quit 2010 Alcohol intake: current Alcohol use details: occasionally Substance use: never Substance use type: does not use Lack of Transportation: No Lack of Food: Never True Current Housing: I Have Housing Concerned About Future Housing: No Difficulty Paying Gas/Electric Bills: No Difficulty Paying for Meds: No Currently Unemployed: No Education: Trade/Vocational Certificate Difficulty w/ Childcare or Family Care: No Living arrangements: with family Occupation/Education: occupation Additional occupation/education comments: [employer] Gender identity (if verbalized by the patient): Male Spiritual care concerns: No Anes - Eval Final PreProcedure Day of Procedure 10/12/25 08:43 Patient weight: obese Lungs: normal air movement Airway: Mallampati scale class II Neurological: alert and oriented Last oral intake: >/= 8 hours ASA classification: III Emergent: no Anesthetic plan: proceed Anesthesia type and monitoring: general ETT and standard monitoring Results Review: All pre-operative results and documents have been reviewed as part of the pre-operative evaluation. HTN, hyperlipidemia, GABBI but doesn't tolerate CPAP, BMI 33. Pt had CVA deemed due to PFO, that was closed subsequently, only small amt of residual is L fingers/eye. Pt had CTA this month 09/2025 reported as nml. Active without cp or sob. Informed Consent: The patient's anesthetic plan and its attendant risks and benefits were discussed with the patient/family/POA. Questions were solicited and answers provided to the satisfaction of the patient/family/POA.
[2025-10-12] MEDS: LIDO 1%/EPINEPHRINE 1:100,000 50 ML VIAL (10:26)
[2025-10-12] MEDS: MUPIROCIN 2% OINT 22 GM TUBE 1 APPLIC EACH NARE (12:09)
--- NOTE | 2025-10-12 12:23 | P.OP_ITS ---
Procedure Note - Detailed Date of Procedure 10/12/25 Pre-op Diagnosis Chronic sinusitis Deviated nasal septum Bilateral inferior turbinate hypertrophy Post-op Diagnosis Same Procedure Performed Bilateral maxillary antrostomy Bilateral total ethmoidectomy Endoscopic septoplasty Bilateral inferior turbinate submucosal reduction Stereotactic computer-assisted navigational procedure Surgeon Nicanor Sauer MD Anesthesia General Findings Diffuse mucosal edema and inflammatory changes No polyps or purulence Left septal deviation with large septal spur Bilateral inferior turbinate hypertophy Septal perforation repaired with vicryl mesh Description of Procedure Patient was identified in the preoperative area, and informed consent was obtained. The patient was transported to the operating room and placed supine on the operating room table. The anesthesiology service induced general anesthesia and intubated the patient. The patient was then positioned and draped. A surgical timeout was performed confirming the patient's identity and the procedure to be performed. The procedure began with placement of oxymetazoline soaked pledgets bilaterally. The stereotactic navigation system was set up and the correct patient information was confirmed. The patient was registered successfully and accurately. The pledgets were removed and the nasal cavities were inspected with a 0 degree endoscope. There was significant septal deviation to the left with a large septal spur. There was bilateral inferior turbinate hypertrophy and significant mucosal edema. No purulence or polyps. Attention was turned to the septoplasty. 1% lidocaine with epinephrine was inj ected into the bilateral caudal septum. Using a 15 blade, a left hemitransfixion incision was made. A [place] elevator was used to elevate the ipsilateral mucoperichondrium. A suction freer was then used to continue to elevate the mucoperichondrial flap posteriorly to the bony-cartilaginous junction which was fractured. Bilateral mucoperiosteal flaps were then elevated posteriorly. Care was taken to elevate the mucosa off the left septal spur with a D knife. Anteriorly, the septal cartilage was incised with a Ankit elevator leaving a 1cm caudal strut. The suction freer was used to raise the contralateral mucoperiosteal flap. A straight thru-cut and [place] were used to incise the septal cartilage and bone superiorly. Septal cartilage and bone were removed with Jonas forceps. Inferiorly, the maxillary crest was removed using an osteotome. The septal pocket was then irrigated thoroughly and hemostasis was confirmed. Both nasal cavities were inspected and the septum was found to be soft and in midline. Of note, bilateral septal mucosal tears occurred during the septoplasty. These were in direct opposition of one another. In order to try to prevent a permanent septal perforation, Vicryl mesh was cut to size and placed in the septal pocket. This was secured with a quilting stitch using 4-0 plain gut suture. Attention was turned to the bilateral inferior turbinates. 1% lidocaine with epinephrine was injected into the heads of the inferior turbinates bilaterally. A 15 blade was used to make a stab incision on the left turbinate. A [place] elevator was used to elevate the mucosa off the bone down the length of the turbinate. A microdebrider was then used to reduce the submucosal tissue while leaving the overlying mucosa intact. The turbinate was then outfractured. In similar fashion, a 15 blade was used to make a stab incision on the right turbinate. A [place] elevator was used to elevate the mucosa off the bone down the length of the turbinate. A microdebrider was then used to reduce the submucosal tissue while leaving the overlying mucosa intact. The turbinate was then outfractured. Both nasal cavities were irrigated and hemostasis was confirmed. Both nasal cavities were widely patent. Attention was turned to the left maxillary antrostomy and total ethmoidectomy. The middle turbinate was medialized using a freer elevator. A 2 ball probe was used to identify the maxillary sinus os and the uncinate. The uncinate was removed using a pediatric backbiter. The antrostomy was extended posteriorly with a straight thru-cut and then was widened with a microdebrider. The antrostomy was inspected to ensure that it included the accessory os. The maxillary sinus was then irrigated and hemostasis was confirmed. Using a J curette, the ethmoid bulla was entered followed by the basal lamella. The ethmoid air cells were then sequentially removed in a posterior to anterior fashion using a combination of thru-cut, [place]akesley forceps, and the microdebrider. The skull base and lamina were identified with the assistance of the navigation system and were protected. The ethmoid cavity was then irrigated and hemostasis was confirmed. Attention was turned to the right maxillary antrostomy and total ethmoidectomy. The middle turbinate was medialized using a freer elevator. A 2 ball probe was used to identify the maxillary sinus os and the uncinate. The uncinate was removed using a pediatric backbiter. The antrostomy was extended posteriorly with a straight thru-cut and then was widened with a microdebrider. The antrostomy was inspected to ensure that it included the accessory os. The maxillary sinus was then irrigated and hemostasis was confirmed. Using a J curette, the ethmoid bulla was entered followed by the basal lamella. The ethmoid air cells were then sequentially removed in a posterior to anterior fashion using a combination of thru-cut, [place]akesley forceps, and the microdebrider. The skull base and lamina were identified with the assistance of the navigation system and were protected. The ethmoid cavity was then irrigated and hemostasis was confirmed. Ambrosio powder was sprayed in the bilateral sinonasal cavities. NasoPore packing was placed in the bilateral ethmoid cavities. Bilateral Bacon splints were then placed with antibiotic ointment. These were secured with a 4-0 nylon suture. The stomach was then suctioned with an orogastric tube. The patient was returned to the anesthesiology service. He was awoken, extubated, and transferred to the postoperative recovery area in stable condition. There were no immediate complications. Estimated Blood Loss 100 [facility] Billing Surgery - Charge Forward: Surgery Billing
--- NOTE | 2025-10-12 12:26 | S_PTH ---
PATIENT: Javier Schneider LOC: [facility] U#:[id number] AGE/SX: 45/M ROOM: RE10/12/[address]: Nicanor Sauer MD : 1980 BED: DIS: 10/12/2025 SPEC #: [id number] RECD: 10/12/25 13:06 STATUS: VISHNU REWilly #: [id number] WADE: 10/12/25 12:[address]: Nicanor Sauer DEPT: [facility] Surgical RECD BY: Rachel Jaramillo ENTERED: 10/12/25 13:07 SP TYPE: Surgical OTHR DR: Abigail Donald, ANNE Tissues: A - Sinus Contents Procedures: Hematoxylin and Eosin Stain Gross and Microscopic Level 4
[2025-10-12] MEDS: LACTATED RINGERS 1,000 ML 30 ML IV CONT ×2 (12:27→12:28)
[2025-10-12] MEDS: oxyCODONE HCL (*CRX) 5 MG TAB IR PO (14:11)
[2025-10-12] MEDS: IBUPROFEN 400 MG TABLET 800 MG PO (15:14)
== END 2025-10-12 15:14 | disposition home or self-care (01) ==
PROVIDERS: PCP Nurse Practitioner Family; Visit Provider Otolaryngology
PROC: (CPT 31255; principal; 2025-10-12 08:30)
PROC: (CPT 30520; 2025-10-12 08:30)
DX: J32.9 Chronic sinusitis, unspecified (principal); J34.3 Hypertrophy of nasal turbinates; J34.2 Deviated nasal septum; Z87.891 Personal history of nicotine dependence; E66.9 Obesity, unspecified; Z68.33 Body mass index [BMI] 33.0-33.9, adult
CPT/HCPCS: 31255; 31256; 61782; 30520; 30140; 88305; A9270; C1781; J1100; J2003; J2004; J2250; J2270; J2405; J2704; J3010; J7050; J7120